=== PATIENT | female | born 1950 | race Caucasian/White ===

== ENCOUNTER → 2018-06-21 07:10 | Outpatient (CLI) | payer OTHER, SELFPAY ==
[2018-06-21 08:29] LABS: Cholesterol 260 mg/dL (50-200); Glucose 106 mg/dL (70-100); HDL Cholesterol 65 mg/dL (40-60); LDL CHOLESTEROL 178 mg/dL (<100); Triglyceride 90 mg/dL (30-150)
[2018-06-22 11:06] LABS: Hepatitis C Ab w Rflx HCV PCR Negative (NEGAT)
== END ==
PROVIDERS: PCP Nurse Practitioner Family; Visit Provider Obstetrics & Gynecology Gynecology
DX: Z00.00 Encounter for general adult medical examination without abnormal findings (principal); Z13.220 Encounter for screening for lipoid disorders; Z13.1 Encounter for screening for diabetes mellitus; Z11.59 Encounter for screening for other viral diseases
CPT/HCPCS: 36415; 80061; 82947; 83721; 86803

== ENCOUNTER 2018-07-20 00:42 | Outpatient (CLI) | payer OTHER, SELFPAY ==
--- NOTE | 2018-07-20 08:00 | DI.MAMMO_ITS ---
SYMPTOMS/DIAGNOSIS: SCREENING, Z12.31 MAMMOGRAMS: Mammograms were interpreted according to the usual protocol including computer analysis with CAD system, tomosynthesis and C view imaging. The breast tissue is of moderate radiodensity. There is no dominant mass. There are no suspicious calcifications and there has been no significant interval change when compared with prior images. SUMMARY: No evidence of malignancy, category 1. Yearly screening mammography is recommended. Breast density category B. SA ASSESSMENT OF FINDINGS: Negative. Category 1. Patient will receive a letter notifying them of these results. BI-RADS category B. There are scattered areas of fibroglandular density.
== END 2018-07-20 01:02 ==
PROVIDERS: PCP Nurse Practitioner Family; Visit Provider Obstetrics & Gynecology Gynecology
DX: Z12.31 Encounter for screening mammogram for malignant neoplasm of breast (principal)
CPT/HCPCS: 77063; 77067

== ENCOUNTER 2019-09-06 01:22 | Outpatient (CLI) | payer OTHER, SELFPAY ==
--- NOTE | 2019-09-06 07:35 | DI.MAMMO_ITS ---
EXAM: MG MAMMO SCREENING MAMMO SCREENING CLINICAL HISTORY: screening,Z12.39 TECHNIQUE: Mammograms were interpreted according to the usual protocol including computer analysis w [employer] CAD system, tomosynthesis and C-view imaging. COMPARISON: 2009 through 2017 FINDINGS: The breasts are composed of scattered fibroglandular densities, Breast Density category B. No suspicious masses or suspicious microcalcifications are seen. No skin thickening or abnormal axillary lymph nodes are seen. There has been no significant change from prior exams. IMPRESSION: BIRADS Category 1, negative mammogram. Yearly screening mammography is recommended. BI-RADS Cat 1 - Negative. Breast Density - Category B - Scattered areas of fibroglandular density.
== END 2019-09-06 01:42 ==
PROVIDERS: PCP Nurse Practitioner Family; Visit Provider Obstetrics & Gynecology Gynecology
DX: Z12.31 Encounter for screening mammogram for malignant neoplasm of breast (principal)
CPT/HCPCS: 77063; 77067

== ENCOUNTER 2020-04-30 10:38 | Outpatient (CLI) | payer OTHER, SELFPAY ==
--- NOTE | 2020-04-30 09:20 | DI.RAD_ITS ---
EXAM: XR LUMBAR SPINE COMPLETE CLINICAL HISTORY: R leg pain. TECHNIQUE: 2D digital imaging was performed. COMPARISON: No exams were available for comparison FINDINGS: There are 5 lumbar type vertebral bodies. There is normal alignment. No evidence of spondylolysis o r spondylolisthesis is seen. There is disc space narrowing at L5-S1. Endplate osteophytes are prese nt throughout the lumbar spine. There are degenerative changes of the facets throughout the lumbar s pine. The findings are most marked at L4-5 and L5-S1. No acute fractures or subluxations are presen t. IMPRESSION: Moderate degenerative changes of the lumbar spine. DATA REPOSITORY: RADIATION DOSE DELIVERED:
== END 2020-04-30 10:58 ==
PROVIDERS: PCP Nurse Practitioner Family; Referring Provider Nurse Practitioner Family; Visit Provider Physician Assistant
DX: M79.604 Pain in right leg (principal); M51.37 Other intervertebral disc degeneration, lumbosacral region; M47.817 Spondylosis without myelopathy or radiculopathy, lumbosacral region
CPT/HCPCS: 72110

== ENCOUNTER 2020-05-07 00:41 | Outpatient (CLI) | payer OTHER, SELFPAY ==
--- NOTE | 2020-05-07 07:00 | DI.MRI_ITS ---
EXAM: MR LUMBAR SPINE WO CLINICAL HISTORY: R LEG PAIN, SPINAL STENOSIS, M48.00. TECHNIQUE: Multiplanar multisequence MRI of the Lumbar spine was performed. COMPARISON: CR XR LUMBAR SPINE COMPLETE from 04/30/2020 FINDINGS: Bones: The last intervertebral disc space is designated the L5/S1 level for the numbering purpose of this examination. The vertebral body heights are well maintained. Alignment is satisfactory. There are degenerative signal changes in the endplates at L5-S1. The overall marrow signal is normal. A h emangioma is noted in the T12 vertebral body.. Cord: The conus tip ends at the L1 level. It is of normal size and signal intensity. T12-L1: No disc herniations or bulges are present. L1-2: Small endplate osteophytes and mild concentric disc bulging. No neural foraminal narrowing o r central canal stenosis. L2-3: Mild concentric disc bulging. Mild facet degenerative changes and ligamentous hypertrophy. No significant neural foraminal narrowing or central canal stenosis. L3-4: Minimal disc bulging. Facet degenerative changes and ligamentous hypertrophy cause moderate n arrowing of the central canal, mainly the transverse dimension. There is no significant neural eleazar inal narrowing. L4-5: Small endplate osteophytes. Mild concentric disc bulging. Tiny right paracentral disc protru andreina. Facet degenerative changes and ligamentous hypertrophy combine with the disc bulging to produc e mild central canal stenosis. There is a small facet joint synovial cyst at the superior aspect of the right facet joint. There is moderate neural foraminal encroachment. There is no significant lef t neural foraminal narrowing. L5-S1: There is marked loss of disc height. There are broad-based mild endplate osteophytes. There are mild facet degenerative changes. There is no significant central canal stenosis. There is mild left and moderate right neural foraminal narrowing. Soft tissues: The visualized SI joints and sacrum are well maintained. The paraspinal soft tissues ar e unremarkable. IMPRESSION: Multilevel degenerative disc changes and facet degenerative changes. There is moderate central canal stenosis at L3-4. There is a small right paracentral disc protrusion at L4-5 and mild central canal stenosis as well as right neural foraminal narrowing. DATA REPOSITORY:
== END 2020-05-07 01:01 ==
PROVIDERS: PCP Nurse Practitioner Family; Visit Provider Student in an Organized Health Care Education/Training Program
DX: M79.604 Pain in right leg (principal); M51.36 Other intervertebral disc degeneration, lumbar region; M51.26 Other intervertebral disc displacement, lumbar region; M48.061 Spinal stenosis, lumbar region without neurogenic claudication
CPT/HCPCS: 72148

== ENCOUNTER 2020-06-08 01:47 | Outpatient (CLI) | payer OTHER, SELFPAY ==
[2020-06-08 13:04] LABS: Anion Gap 10.8 mmol/L (3-11); BUN 23 mg/dL (7-18); CO2 26.2 mmol/L (21.0-32.0); CREATININE 0.95 mg/dL (0.55-1.02); Calcium 9.4 mg/dL (8.5-10.1); Chloride 100 mmol/L (98-107); Estimated GFR 57.99 (mL/min/1.73m2); Glucose 149 mg/dL (74-106); Potassium 4.8 mmol/L (3.5-5.1); Sodium 137 mmol/L (136-145)
== END 2020-06-08 02:07 ==
PROVIDERS: PCP Nurse Practitioner Family; Visit Provider Physician Assistant
DX: I10 Essential (primary) hypertension (principal)
CPT/HCPCS: 36415; 80048

== ENCOUNTER 2020-08-22 01:28 | Outpatient (CLI) | payer OTHER, SELFPAY ==
[2020-08-22 12:53] LABS: Hemoglobin A1C 5.6 % (<5.7)
== END 2020-08-22 01:48 ==
PROVIDERS: PCP Nurse Practitioner Family; Visit Provider Obstetrics & Gynecology Gynecology
DX: Z13.1 Encounter for screening for diabetes mellitus (principal)
CPT/HCPCS: 36415; 83036

== ENCOUNTER 2020-09-28 01:58 | Outpatient (CLI) | payer OTHER, SELFPAY ==
--- NOTE | 2020-09-28 13:30 | DI.MAMMO_ITS ---
EXAM: MG MAMMO SCREENING CLINICAL HISTORY: screening TECHNIQUE: Mammograms were interpreted according to the usual protocol including computer analysis w [employer] CAD system, tomosynthesis and C-view imaging. COMPARISON: FINDINGS: The breasts are of moderate density with fairly symmetrical distribution of fibroglandular tissue. N o dominant mass or clumped microcalcification is identified in either breast. The current examinatio n is compared with previous examinations including September 2019 and there has been no gross interval change in appearance in comparison with the prior studies. IMPRESSION: No specific evidence of malignancy at this time. Routine screening examinations are suggested at yea rly intervals due to the family history of breast carcinoma. BI-RADS Category 1 - Negative Breast Density - Category B - Scattered areas of fibroglandular density
== END 2020-09-28 02:18 ==
PROVIDERS: PCP Nurse Practitioner Family; Visit Provider Obstetrics & Gynecology Gynecology
DX: Z12.31 Encounter for screening mammogram for malignant neoplasm of breast (principal); Z80.3 Family history of malignant neoplasm of breast
CPT/HCPCS: 77063; 77067

== ENCOUNTER 2021-09-27 09:11 | Outpatient (REF) | payer OTHER, SELFPAY ==
[2021-09-27 14:50] LABS: Hemoglobin A1C 5.4 % (<5.7)
[2021-09-27 14:53] LABS: Calculated LDL 159 mg/dL (<100); Cholesterol 247 mg/dL (<200); HDL Cholesterol 67 mg/dL (40-60); Triglyceride 109 mg/dL (<150)
== END 2021-09-27 09:12 | disposition home or self-care (01) ==
LOC: NCHCN 09:11
PROVIDERS: PCP Nurse Practitioner Family; Visit Provider Nurse Practitioner Family
DX: E78.5 Hyperlipidemia, unspecified (principal); I10 Essential (primary) hypertension; R73.03 Prediabetes
CPT/HCPCS: 80061; 83036

== ENCOUNTER 2021-10-17 01:32 | Outpatient (CLI) | payer OTHER, SELFPAY ==
--- NOTE | 2021-10-17 12:40 | DI.MAMMO_ITS ---
Exam(s) MAMMO SCREENING EXAM: MAMMO SCREENING CLINICAL HISTORY: SCREENING, Z12.31, FAMILY HX OF BREAST CA, Z80.3. TECHNIQUE: Bilateral full field digital CC and MLO mammographic images were obtained with 3D tomosyn thesis and utilizing computer aided detection (CAD). COMPARISON: Prior mammograms dating back to 2011, the most recent being September 2020.. Family history. Her sister was diagnosed with breast cancer. FINDINGS: There has been no significant change in the appearance and distribution of the fibroglandular tissue. There are no new spiculated masses nor malignant appearing microcalcification groups. There is no significant architectural distortion nor skin thickening-retraction. IMPRESSION: No radiographic evidence of malignancy. BI-RADS Category 1 - Negative Breast Density - Category B - Scattered areas of fibroglandular density Breast density Category C or D implies that the patient has dense breast tissue. Dense breast tissue can make it harder to find cancer on a mammogram. Dense breast tissue is also associated with an incr eased risk of breast cancer. This information about the result of the mammogram report was provided to the patient to raise their awareness. Use this report when you speak with the patient about their risks for breast cancer, which includes their family history. At that time, you may recommend additional screening tests (Ultrasoun d or MRI) as these tests may add significant information. A negative radiographic report should not delay biopsy if a dominant or clinically suspicious mass is present. Up to ten percent of cancers are not identified on mammography. A negative report may reinforce clinical impression. Adenosis and dense breasts may obscure an underlying neoplasm. False positive reports average 6 to 10%. Patient will receive a letter notifying them of these results.
== END 2021-10-17 01:52 ==
PROVIDERS: PCP Nurse Practitioner Family; Visit Provider Nurse Practitioner Family
DX: Z12.31 Encounter for screening mammogram for malignant neoplasm of breast (principal)
CPT/HCPCS: 77063; 77067

== ENCOUNTER 2022-10-16 05:17 | Emergency (ER) | payer OTHER, SELFPAY ==
[2022-10-16 05:37] VITALS: BP 149/93; PULSE 91; RESP 18; TEMP 37.1; O2SAT 96
--- NOTE | 2022-10-16 05:39 | W.ED.GENAD ---
Discharge Plan Disposition Patient Disposition: Home Condition: Stable Discharge Details Clinical Impression: Tinnitus, Hearing loss Primary Care Provider: Melida Brown ED Provider: Odalis Justin Home Meds and New Rx's Prescriptions: New methylprednisolone [Medrol (Maximus)] 4 mg tablets,dose pack See Rx Instructions .ROUTE .COMPLEX Qty: 21 0RF Rx Instructions: orally per package directions Continued acetaminophen [Tylenol Extra Strength] 500 mg tablet 1,000 mg PO Q6H PRN Label Comments: takes one to two tabs as needed dorie/ cinnamon PO Label Comments: Pt reports using combination nightly, exact measurement unknown but pt reports approximately 1/4 tsp each of the spices Dorie/cinnamon PO DAILY Label Comments: 1/2 teaspoon each calcium carbonate-vitamin D3 600 mg-12.5 mcg (500 unit) capsule 1 cap PO DAILY ascorbate calcium (vitamin C) 500 mg tablet 1 gm PO DAILY Discharge Instructions Instructions: Hearing Loss (ED), Tinnitus (ED) Additional Instructions: Discontinue the Paxlovid. A prescription for the steroid medication Medrol Dosepak has been sent electronically to your pharmacy to take as directed until finished. Call your primary care doctor's office today to schedule a follow-up appointment for reevaluation within the next week and for follow-up on the results of the lab tests drawn today. Return immediately to the emergency department if you develop any worsening or new concerning symptoms such as headache, vomiting, fever or any other concerns. Discharge Data Discharge Date/Time-TO BE ENTERED AT DEPARTURE: 10/16/22 07:22 Discharge Physician: Odalis Justin Medical Decision Making 72yo F diagnosed with covid 6 days ago presents with a history of perioral paresthesias after 2 doses of paxlovid which has since resolved now presents with bilateral tinnitus and decreased hearing since yesterday. Pt states she was sent by her pcp for blood tests for her symptoms. Pt appears comfortable and nontoxic. Vitals within normal limits. She is afebrile and appears nontoxic. L TM obscured by cerumen. R TM appears to have fluid behind TM, no drainage. Normal oropharynx. Nurse attempted to flush L ear and no significant cerumen removal. D/w pharmacy international project manager and no recommendations or information regarding her symptoms of tinnitus and hearing loss after paxlovid - he thought having only 2 doses would be unusual to produce these effects. Recommends checking a liver panel as so far one of the only known side effect of Paxlovid is hepatotoxicity. Discussed with patient that I recommend treating with steroids to see if this alleviates any of her symptoms. Patient states she has not felt well while taking steroids and felt jittery. Discussed that we can treat with a Medrol Dosepak which is a lower starting and ending dose. Patient is agreeable with this plan. Discussed with pharmacy and there is also no known h/o polyethylene glycol coating in medrol dosepak. Patient also requested if she can have fasting outpatient labs that were ordered for tomorrow to be done now. Discussed with laboratory and they state that these tests are ordered for next week but they can be done at this time. Patient advised to use Debrox drops in her left ear. A prescription for Medrol Dosepak sent electronically to her pharmacy. She will no longer be taking the Paxlovid. Advised to follow up with the primary care doctor for re-evaluation. Usual and customary return precautions given prior to discharge. Medical Records Medical records reviewed: Yes I reviewed the patient's medical records. HPI General Mode of arrival: ambulatory. Date/Time Provider Initiated Documentation: 10/16/22 05:20. Limitations to Documentation: no limitations. Information obtained by: patient. HPI Narrative: Patient is a 72-year-old female who was diagnosed with COVID 5 days ago who presents with hearing loss and tinnitus after starting Paxlovid yesterday. Patient states she had a severe sore throat with COVID that has since resolved. She states she was started on Paxlovid per her PCP office of which she took 2 doses and noticed tingling and numbness around her mouth and lips and stopped taking the Paxlovid. She states she determined that the Paxlovid had a polyethylene glycol coating which she has had a reaction of localized swelling, numbness and tingling in the past. Patient states the symptoms completely resolved and last night she noted bilateral hearing loss and tinnitus which she states has been worsening. She states she called her PCP office and spoke to Dr. Weaver and was advised to come to the emergency department for further evaluation and possible blood work. Related Data Home Medications Medication Instructions Recorded Confirmed ascorbate calcium (vitamin C) 500 1 gm PO DAILY 05/17/20 04/05/22 mg tablet acetaminophen 500 mg tablet 1,000 mg PO Q6H PRN 08/17/20 04/05/22 (Tylenol Extra Strength) Dorie/cinnamon PO DAILY 10/07/22 10/07/22 calcium carbonate 600 mg-vitamin 1 cap PO DAILY 10/07/22 10/07/22 D3 12.5 mcg (500 unit) capsule dorie/ cinnamon PO 10/07/22 10/07/22 methylprednisolone 4 mg tablets in See Rx Instructions PO .COMPLEX 10/16/22 a dose pack (Medrol (Maximus)) #21 dose pk Previous Rx's Medication Instructions Recorded methylprednisolone 4 mg tablets in See Rx Instructions PO .COMPLEX 10/16/22 a dose pack (Medrol (Maximus)) #21 dose pk Allergies Allergy/AdvReac Type Severity Reaction Status Date / Time polyethylene glycol AdvReac Intermediate localized Verified 10/07/22 13:26 swelling. numbness/tingling General Stated Complaint: EarProblem ARLENE: 3 Review of Systems All systems reviewed & are unremarkable except as noted in HPI and below Constitutional Constitutional: Reports as per HPI, Denies chills and Denies fever(s) Eyes Eyes: Denies blurry vision ENT Ears, Nose, Mouth, and Throat: Denies dizziness, Reports hearing loss, Reports tinnitus, Denies sore throat and Denies throat swelling Cardiovascular Cardiovascular: Denies chest pain and Denies dyspnea Respiratory Respiratory: Denies cough and Denies dyspnea Gastrointestinal Gastrointestinal: Denies abdominal pain, Denies diarrhea and Denies vomiting Genitourinary Genitourinary: Denies hematuria and Denies dysuria Musculoskeletal Musculoskeletal: Denies back pain and Denies numbness Integumentary/Breasts Skin/Breast: Denies lesions and Denies rash Neurologic Neurologic: Denies dizziness, Denies localized weakness and Denies numbness Allergic/Immunologic Allergic/Immunologic: Denies throat swelling PFSH All Active Problems (Updated 10/16/22 @ 06:57 by Odalis Justin DO) Tinnitus (Acute) Hearing loss (Acute) Family hx of aortic aneurysm (Acute) Exposure to strep throat (Acute) Screening for diabetes mellitus (Acute) Right lumbar radiculopathy (Acute) R L4-5 Disc Herniation and Synovial Facet Cyst Gastrocnemius strain, left (Acute) Spinal stenosis (Acute) Encounter for screening for other viral diseases (Acute) Elevated systolic blood pressure reading without diagnosis of hypertension (Acute) Facial lesion (Acute) Encounter for colorectal cancer screening (Acute) Medical History (Updated 10/16/22 @ 06:57 by Odalis Justin DO) Actinic keratosis Elevated fasting glucose 2013 = 106. 2017 = 106 Palpitations (~12/2008) palpitations and syncope - Cardiology evaluation negative Surgical History Cervical Procedure 1993 cryo Ligation of fallopian tube (~1975) Family History Mother Rheumatoid arthritis severe Father Alzheimer's disease Sister Hyperlipidemia Grandmother Heart disease mat aunt Heart disease mat first cousin Personal history of malignant neoplasm Breast CA paternal uncle Alzheimer's disease undiagnosed dementia Brother Melanoma Social History (Updated 05/24/20 @ 08:01 by Adeline Nunez) Smoking/Tobacco Use Status: Never Smoking risk assessment performed?: Yes Alcohol Intake: never Drug use: Never Current gender identity: female Special kevon needs: No Do you feel safe at home: Yes Do you feel safe in your relationship?: Yes Female Reproductive History Menstrual Menopause type: natural Exam Const General: cooperative and no acute distress Orientation: alert, awake and oriented x3 HENMT Head: normal to inspection Ears: hearing grossly normal bilaterally, external ears normal and TM abnormal with fluid behind the TM on the right and obstructed by cerumen on the left General nose exam: external nose normal Mouth: oral mucosae normal Throat: posterior oropharynx normal, uvula midline and no peritonsillar masses Eyes General: appearance normal, both eyes and all related structures Neck Neck: normal visual inspection Resp Effort & Inspection: normal respiratory effort and able to speak in complete sentences Cardio Rate: regular rate Skin General skin exam: no rashes or lesions noted Neuro General: patient alert, patient awake and patient oriented x3 Motor: muscle tone normal throughout Extrem General: normal to inspection and full ROM Psych Appearance: grossly normal Affect: normal affect
[2022-10-16 12:54] LABS: ALT 19 U/L (14-59); AST 24 U/L (15-37); Albumin 3.8 g/dL (3.4-5.0); Alkaline Phosphatase 58 U/L (46-116); Bilirubin, Direct 0.1 mg/dL (0.0-0.2); Bilirubin, Total 0.3 mg/dL (0.2-1.0); Total Protein 7.1 g/dL (6.4-8.2)
== END 2022-10-16 07:22 | disposition home or self-care (01) ==
PROVIDERS: Emergency Provider Physician Assistant; PCP Nurse Practitioner Family
DX: H93.13 Tinnitus, bilateral (principal); H91.93 Unspecified hearing loss, bilateral; T37.5X5A Adverse effect of antiviral drugs, initial encounter; H61.22 Impacted cerumen, left ear; Z86.16 Personal history of COVID-19
CPT/HCPCS: 80076; 99283; 99284

== ENCOUNTER 2022-10-16 13:22 | Outpatient (CLI) | payer OTHER, SELFPAY ==
[2022-10-16 07:48] LABS: ALT 22 U/L (14-59); AST 20 U/L (15-37); Albumin 3.6 g/dL (3.4-5.0); Alkaline Phosphatase 60 U/L (46-116); BUN 11 mg/dL (7-18); Bilirubin, Total 0.3 mg/dL (0.2-1.0); CREATININE 0.9 mg/dL (0.55-1.02); Calcium 8.5 mg/dL (8.5-10.1); Calculated LDL 130 mg/dL (<100); Chloride 103 mmol/L (98-107); Cholesterol 208 mg/dL (<200); Glucose 112 mg/dL (74-106); HDL Cholesterol 59 mg/dL (40-60); Potassium 4.1 mmol/L (3.5-5.1); Sodium 140 mmol/L (136-145); Triglyceride 95 mg/dL (<150)
== END 2022-10-16 13:23 | disposition home or self-care (01) ==
LOC: LBO 13:22
PROVIDERS: PCP Nurse Practitioner Family; Visit Provider Obstetrics & Gynecology Gynecology
DX: Z13.1 Encounter for screening for diabetes mellitus (principal)
CPT/HCPCS: 36415; 80053; 80061

== ENCOUNTER 2022-11-25 02:09 | Outpatient (CLI) | payer OTHER, SELFPAY ==
--- NOTE | 2022-11-25 07:45 | DI.MAMMO_ITS ---
Exam(s) MAMMO SCREENING EXAM: MAMMO SCREENING CLINICAL HISTORY: screening. TECHNIQUE: Bilateral full field digital CC and MLO mammographic images were obtained with 3D tomosyn thesis and utilizing computer aided detection (CAD). COMPARISON: Prior mammograms were reviewed. FINDINGS: There has been no significant change in the appearance and distribution of the fibroglandular tissue. There are no new spiculated masses nor malignant appearing microcalcification groups. There is no significant architectural distortion nor skin thickening-retraction. IMPRESSION: No radiographic evidence of malignancy. BI-RADS Category 1 - Negative Breast Density - Category B - Scattered areas of fibroglandular density Breast density Category C or D implies that the patient has dense breast tissue. Dense breast tissue can make it harder to find cancer on a mammogram. Dense breast tissue is also associated with an incr eased risk of breast cancer. This information about the result of the mammogram report was provided to the patient to raise their awareness. Use this report when you speak with the patient about their risks for breast cancer, which includes their family history. At that time, you may recommend additional screening tests (Ultrasoun d or MRI) as these tests may add significant information. A negative radiographic report should not delay biopsy if a dominant or clinically suspicious mass is present. Up to ten percent of cancers are not identified on mammography. A negative report may reinforce clinical impression. Adenosis and dense breasts may obscure an underlying neoplasm. False positive reports average 6 to 10%. Patient will receive a letter notifying them of these results.
== END 2022-11-25 02:29 ==
LOC: DI 02:09
PROVIDERS: PCP Nurse Practitioner Family; Visit Provider Obstetrics & Gynecology Gynecology
DX: Z12.31 Encounter for screening mammogram for malignant neoplasm of breast (principal)
CPT/HCPCS: 77063; 77067

== ENCOUNTER 2023-04-01 09:42 | Emergency (ER) | payer OTHER, SELFPAY ==
[2023-04-01] VITALS (20 sets, daily range): BP systolic 123–168; BP diastolic 53–77; PULSE 60–78; RESP 16; TEMP 36.7; O2SAT 97–99
--- NOTE | 2023-04-01 09:45 | RT.EKG_ITS ---
APPROVED REPORT Exam: Resting ECG Reason for Exam: dizziness Patient Location: E HR:70 bpm ECG Measurements Heart Rate 70 AXIS NE 155 P 37 QRSd 91 QRS -36 QT 410 T 30 QTc 441 Conclusion Sinus rhythm...normal P axis, V-rate 60- 99 Left ventricular hypertrophy...multiple voltage criteria sinus rhythm, left axis, normal intervals, non ischemic
--- NOTE | 2023-04-01 10:15 | DI.RAD_ITS ---
Exam(s) XR CHEST 2V PA LATERAL EXAM: XR CHEST 2V PA LATERAL CLINICAL HISTORY: presyncope TECHNIQUE: 2D digital imaging was performed. COMPARISON: No exams were available for comparison FINDINGS: HEART: Normal size. Aorta: Not dilated. PULMONARY VASCULATURE: Normal. LUNGS: Clear. PLEURAL SPACE: No pleural effusion or pneumothorax. BONE:Unremarkable for age. IMPRESSION: No acute abnormality. DATA REPOSITORY: RADIATION DOSE DELIVERED:
[2023-04-01] MEDS: Ondansetron 4 MG/2 ML VIAL IVP (10:40)
--- NOTE | 2023-04-01 10:43 | ED.GENADUL_ITS ---
Discharge Plan Disposition Patient Disposition: Home Discharge Details Chief Complaint: Dizzy/Sync Clinical Impression: Near syncope, Fecal incontinence Primary Care Provider: Melida Brown ED Provider: Taiwo Paniagua Home Meds and New Rx's Prescriptions: No Action acetaminophen [Tylenol Extra Strength] 500 mg tablet 1,000 mg PO Q6H PRN Patient Comments: takes one to two tabs as needed dorie/ cinnamon 1 tsp PO DAILY Patient Comments: Pt reports using combination nightly, exact measurement unknown but pt reports approximately 1/4 tsp each of the spices Dorie/cinnamon PO DAILY Patient Comments: 1/2 teaspoon each calcium carbonate-vitamin D3 600 mg-12.5 mcg (500 unit) capsule 1 cap PO DAILY Patient Comments: havent been taking recently ascorbate calcium (vitamin C) 500 mg tablet 1 gm PO DAILY methylprednisolone [Medrol (Maximus)] 4 mg tablets,dose pack See Rx Instructions .ROUTE .COMPLEX Qty: 21 0RF Patient Comments: patient states she was done with scrip in October of 2022 Rx Instructions: orally per package directions Discharge Instructions Instructions: Near Syncope (ED) Additional Instructions: Please follow-up with your primary care physician and discuss your lightheaded ness and fecal incontinence. If you have any issues obtaining referral for further imaging and/or colonoscopy or have any worsening symptoms please do not hesitate to return to the emergency department. Medical Decision Making 72-year-old female presents with near syncopal episodes over the past 2 days, lightheadedness and warm sensation coming over her body multiple times a day, both at rest and when standing. Mild nausea with resolved vomiting. No chest pain or shortness of breath no abdominal pain. Patient is neurologically intact. 5-5 strength upper and lower extremities, no ataxia. Cranial nerves intact normal speech. 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 Normal rectal tone examination. Consider dehydration versus electrolyte abnormality versus ACS versus less likely PE lower suspicion for CVA, no evidence of cauda equina on examination today. Will obtain screening labs EKG, fluids close reassessment of symptoms 14: 46 patient resting comfortably no acute distress. Feeling better after fluids and rest. Labs and imaging unremarkable. Encourage patient to follow-up for potential repeat colonoscopy given fecal incontinence. Patient does not want a referral at this time she will contact her primary care physician for follow-up. Given strict return precautions for any worsening symptoms. HPI General Date/Time Provider Initiated Documentation: 04/01/23 10:16 . HPI Narrative: 72-year-old female presents with intermittent sensation of lightheadedness and presyncope over the last 2 days, feels a warm sensation and as if she was going to pass out. No chest pain or shortness of breath. Did have some nausea and loose stool. Of note patient also endorses episodes of stool incontinence over the past several months specifically after getting adjustments of her lower back in the setting of spinal stenosis. MRI in the past has shown spinal cyst. Patient denies weakness in her legs saddle anesthesia or falls. No recent trauma. Related Data Home Medications Medication Instructions Recorded Confirmed ascorbate calcium (vitamin C) 500 1 gm PO DAILY 05/17/20 04/05/22 mg tablet acetaminophen 500 mg tablet 1,000 mg PO Q6H PRN 08/17/20 04/05/22 (Tylenol Extra Strength) Dorie/cinnamon PO DAILY 10/07/22 10/07/22 calcium carbonate 600 mg-vitamin 1 cap PO DAILY 10/07/22 10/07/22 D3 12.5 mcg (500 unit) capsule dorie/ cinnamon 1 tsp PO DAILY 10/07/22 04/01/23 methylprednisolone 4 mg tablets in See Rx Instructions PO .COMPLEX 10/16/22 a dose pack (Medrol (Maximus)) #21 dose pk Previous Rx's Medication Instructions Recorded methylprednisolone 4 mg tablets in See Rx Instructions PO .COMPLEX 10/16/22 a dose pack (Medrol (Maximus)) #21 dose pk Allergies Allergy/AdvReac Type Severity Reaction Status Date / Time polyethylene glycol AdvReac Intermediate localized Verified 10/07/22 13:26 swelling. 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 2017 = 106 Palpitations (~12/2008) palpitations and syncope - Cardiology evaluation negative Surgical History Cervical Procedure 1993 cryo Ligation of fallopian tube (~1975) Family History Mother Rheumatoid arthritis severe Father Alzheimer's disease Sister Hyperlipidemia Grandmother Heart disease mat aunt Heart disease mat first cousin Personal history of malignant neoplasm Breast CA paternal uncle Alzheimer's disease undiagnosed dementia Brother Melanoma Social History (Updated 05/24/20 @ 08:01 by Adeline Nunez) Smoking/Tobacco Use Status: Never Smoking risk assessment performed?: Yes Alcohol Intake: never Drug use: Never Current gender identity: female Special kevon needs: No Do you feel safe at home: Yes Do you feel safe in your relationship?: Yes Female Reproductive History Menstrual Menopause type: natural Exam Narrative Exam Narrative: Physical Examination General: alert, awake, cooperative, resting comfortably, no acute distress HEENT: normocephalic, atraumatic; PERRL, EOM intact, conjunctiva normal; no nasal discharge; moist mucous membranes, oral and pharyngeal mucosa normal, tolerating secretions Neck: supple, trachea midline; full ROM Chest: normal to inspection Respiratory: normal respiratory effort, speaking in full sentences, clear to auscultation, no wheezing, rales or rhonchi Cardiac: regular rate, regular rhythm, S1S2 intact, no murmurs rubs or gallops GI: abdomen soft, non-tender, non-distended; no palpable mass or hepatosplenomegaly; normal rectal tone Skin: no lesions, rashes or trauma appreciated Neuro: AAOx3, normal speech, moving all extremities; 5 out of 5 strength upper and lower extremities, normal rectal tone. No ataxia Psych: Appropriate mood and affect Course Vital Signs Vital signs: Vital Signs Temperature 36.7 C 04/01/23 09:45 Pulse 78 04/01/23 09:45 Respiratory Rate 16 04/01/23 09:45 Blood Pressure 168/77 H 04/01/23 09:45 Pulse Oximetry 97 04/01/23 09:45 Temperature 36.7 C 04/01/23 09:45 Temperature Source Skin 04/01/23 09:45 Pulse 78 04/01/23 09:45 Respiratory Rate 16 04/01/23 10:03 Respiratory Effort Normal 04/01/23 10:03 Respiratory Depth Normal 04/01/23 10:03 Respiratory Pattern Normal 04/01/23 10:03 Blood Pressure 168/77 H 04/01/23 09:45 Pulse Oximetry 97 04/01/23 09:45 Oxygen Delivery Method Room Air 04/01/23 09:45 Oxygen Flow Rate 0 04/01/23 09:45 Pain Level 0 04/01/23 09:45
[2023-04-01 10:56] LABS: Abs Immature Grans 0.04 10^3/uL (0.0-0.06); Absolute Basophil Count 0.04 10^3/uL (0.0-0.2); Absolute Eosinophil Count 0.01 10^3/uL (0.0-0.7); Absolute Lymphocyte Count 1.23 10^3/uL (1.2-3.4); Absolute Neutrophil Count 6.74 10^3/uL (1.2-6.7); Basophils % 0.5; Eosinophils % 0.1; HCT 38.3 % (36.0-46.0); HGB 12.7 g/dL (11.2-15.7); Immature Grans % 0.5; Lymphocytes % 14.7; MCH 30.1 pg (27.0-33.0); MCHC 33.2 % (32.0-36.0); MCV 91 fL (80-95); MPV 9.6 fL (8.0-11.0); Monocytes % 3.6; Neutrophils % 80.6; Platelet Count 284 10^3/uL (130-400); RBC 4.22 10^6/uL (3.93-5.22); RDW 12.1 % (11.7-14.6); RDW-SD 40.4 fL; WBC 8.36 10^3/uL (4.4-10.8)
[2023-04-01] MEDS: Normal Saline 1,000 ML 1000 ML IV (11:01)
[2023-04-01 11:10] LABS: PTT Activated 24.5 sec (21.5-31.9)
[2023-04-01 11:13] LABS: Bilirubin Negative (Negative); Blood Negative (Negative); Clarity Clear (Clear); Glucose Negative (Negative); Ketones Trace mg/dL (Negative); Leukocyte Esterase Trace (Negative); Nitrite Negative (Negative); Specific Gravity >= 1.030 (1.005-1.025); Urobilinogen 0.2 mg/dL (Up to 0.2)
[2023-04-01 11:27] LABS: ALT 25 U/L (14-59); AST 16 U/L (15-37); Alkaline Phosphatase 67 U/L (46-116); Anion Gap 7.3 mmol/L (3-11); BUN 21 mg/dL (7-18); Bilirubin, Total 0.6 mg/dL (0.2-1.0); CO2 29.7 mmol/L (21.0-32.0); CREATININE 1.1 mg/dL (0.55-1.02); Calcium 8.7 mg/dL (8.5-10.1); Chloride 103 mmol/L (98-107); Estimated GFR 53.06 (mL/min/1.73m2); Glucose 125 mg/dL (74-106); Potassium 4.2 mmol/L (3.5-5.1); Sodium 140 mmol/L (136-145); Total Protein 7.2 g/dL (6.4-8.2); Troponin I < 50 ng/L (<or=60)
[2023-04-01 11:32] LABS: TSH (W/Ref FT4) 0.98 uIU/mL (0.36-3.74)
[2023-04-01 11:36] LABS: Bacteria Few HPF (Negative); Epithelial Cells Few HPF (Negative); RBC 0-2 HPF (0-2)
[2023-04-01 11:37] LABS: C & S Indicated? Yes; Casts Negative LPF (Negative); Crystals Negative HPF (Negative); Mucus Trace (Negative)
[2023-04-01 13:56] LABS: Troponin I < 50 ng/L (<or=60)
== END 2023-04-01 17:23 | disposition home or self-care (01) ==
PROVIDERS: Emergency Provider Emergency Medicine; PCP Nurse Practitioner Family
DX: R55 Syncope and collapse (principal); R15.9 Full incontinence of feces
CPT/HCPCS: 36415; 80053; 93005; 96361; 96374; 99284; 71046; 81003; 81015; 84443; 84484; 85025; 85610; 85730; 87086; 93010; J2405

== ENCOUNTER 2023-04-09 20:20 | Outpatient (REF) | payer OTHER, SELFPAY ==
[2023-04-09 20:28] LABS: Anion Gap 4.5 mmol/L (3-11); BUN 14 mg/dL (7-18); CO2 29.5 mmol/L (21.0-32.0); CREATININE 0.9 mg/dL (0.55-1.02); Calcium 9.2 mg/dL (8.5-10.1); Chloride 103 mmol/L (98-107); Glucose 117 mg/dL (74-106); Potassium 4.1 mmol/L (3.5-5.1); Sodium 137 mmol/L (136-145)
== END 2023-04-09 20:21 | disposition home or self-care (01) ==
LOC: NCHCN 20:20
PROVIDERS: PCP Nurse Practitioner Family; Visit Provider Nurse Practitioner Family
DX: N28.9 Disorder of kidney and ureter, unspecified (principal); R25.1 Tremor, unspecified; R55 Syncope and collapse; I10 Essential (primary) hypertension; R73.03 Prediabetes; E78.5 Hyperlipidemia, unspecified
CPT/HCPCS: 80048

== ENCOUNTER 2023-04-29 00:52 | Outpatient (CLI) | payer OTHER, SELFPAY ==
--- NOTE | 2023-04-29 | DI.MRI_ITS ---
Exam(s) MR LUMBAR SPINE WO/W EXAM: MR LUMBAR SPINE WO/W CLINICAL HISTORY: FECAL INCONTINENCE,LUMBAR SPONDYLOLYSIS, M43.06,R15.9. TECHNIQUE: Multiplanar multisequence MRI of the Lumbar Spine was performed. CONTRAST MATERIAL: IV Contrast: 12 mL of Dotarem contrast administered. COMPARISON: MR MR LUMBAR SPINE WO from 05/07/2020 CR XR CHEST 2V PA LATERAL from 04/01/2023 FINDINGS: Bones: The last intervertebral disc space is designated the L5/S1 level for the numbering purpose of this examination. Since the prior MRI from 2019, there has been interval compression deformity of th e L1 vertebra superior endplate. This was present on a chest x-ray from 04/01/2023. Vertebral body h eights are otherwise well maintained. Alignment is satisfactory. There are degenerative endplate sig nal changes, most marked at L5-S1. There is again seen a hemangioma in the T12 vertebral body. Cord: The conus tip ends at the T12 level. It is of normal size and signal intensity. T12-L1: No disc herniations or bulges are present. No central spinal canal or neural foraminal stenos is. L1-2: No disc herniations or bulges are present. No central spinal canal or neural foraminal stenosis . L2-3: There is a mild diffuse disc bulge. No central spinal canal or neural foraminal stenosis. L3-4: No focal disc herniation. There are hypertrophic changes of the facets. There is mild narrowi ng of the central spinal canal which results. No significant neural foraminal stenosis. L4-5: There is a diffuse disc bulge. There are hypertrophic changes of the facets and ligamentum fla vum. The findings cause moderately severe central spinal canal stenosis. No significant neural fora ten stenosis is present. L5-S1: There is a very mild diffuse disc bulge. There are mild degenerative changes of the facets. No central spinal canal or neural foraminal stenosis. Soft tissues: The visualized SI joints and sacrum are well maintained. The paraspinal soft tissues ar e unremarkable. There is a multiloculated cystic lesion in the right upper quadrant which appears to be associated with the liver. It is incompletely imaged. There does not appear to be enhancement on the postcontrast images. There is no evidence of suspicious enhancement. IMPRESSION: 1. Multilevel degenerative changes throughout the lumbar spine as described above. 2. The findings are most marked at the L4-5 level where there is moderately severe central spinal can al stenosis present. 3. Multi cystic lesion in the right upper quadrant which appears to be so seated with the liver. A C T scan or MRI of the liver is recommended without and with contrast for further evaluation. 4. Compression fracture deformity of the superior endplate of L1. This does not appear to be acute b ut has occurred since the prior examination from 2019. This can be seen on the x-ray of the chest fr om 04/01/2023. Unexpected findings DATA REPOSITORY:
[2023-04-29] MEDS: Normal Saline Flush 10 ML SYR IVP (09:52)
[2023-04-29] MEDS: Gadoterate meglumine 20 ML SYRINGE 12 ML IVP (09:53)
== END 2023-04-29 01:12 ==
PROVIDERS: PCP Nurse Practitioner Family; Visit Provider Nurse Practitioner Family
DX: R15.9 Full incontinence of feces (principal); M43.06 Spondylolysis, lumbar region; S32.010A Wedge compression fracture of first lumbar vertebra, initial encounter for closed fracture; X58.XXXA Exposure to other specified factors, initial encounter
CPT/HCPCS: 72158

== ENCOUNTER 2023-05-22 00:52 | Outpatient (CLI) | payer OTHER, SELFPAY ==
--- NOTE | 2023-05-22 | DI.MRI_ITS ---
Exam(s) MR ABDOMEN WO/W EXAM: MR ABDOMEN WO/W CLINICAL HISTORY: LIVER LESION, K76.9 TECHNIQUE: Multiplanar multisequence MRI of the Abdomen was performed. CONTRAST MATERIAL: IV Contrast: 12 mL of Dotarem contrast administered. COMPARISON: MR MR LUMBAR SPINE WO from 05/07/2020 MR MR LUMBAR SPINE WO/W from 04/29/2023 FINDINGS: Lung bases: Clear. Liver: Innumerable cysts throughout the liver, largest in the inferior from medial right lobe which w ere visible on the recent lumbar spine MRI.. No suspicious lesions. Pancreas: Unremarkable. Gallbladder and Bile Ducts: Unremarkable. Adrenals: Unremarkable. Kidneys: Unremarkable. Spleen: Unremarkable. Aorta: Unremarkable. Soft Tissues: Unremarkable. Bone: Unremarkable. Lymph Nodes: Unremarkable. IMPRESSION: Innumerable liver cysts, the largest seen at the inferomedial right lobe. No suspicious lesions. DATA REPOSITORY:
[2023-05-22] MEDS: Gadoterate meglumine 20 ML VIAL IVP (08:50)
== END 2023-05-22 01:12 ==
LOC: DI 00:52
PROVIDERS: PCP Nurse Practitioner Family; Visit Provider Nurse Practitioner Family
DX: Q44.6 Cystic disease of liver (principal); K76.9 Liver disease, unspecified
CPT/HCPCS: 74183

== ENCOUNTER → 2023-06-15 13:35 | Outpatient (CLI) | payer OTHER, SELFPAY ==
--- NOTE | 2023-06-15 10:30 | DI.US_ITS ---
APPROVED REPORT EXAM: Comprehensive 2D, Doppler, and color-flow Echocardiogram Patient Location: Out-Patient [facility] Leverman: Donavan Lin RDCS Indications: NEAR SYNCOPE Other Information Study Quality: Adequate Conclusion Normal left ventricular wall thickness and chamber size. Ejection fraction is 60%. Wall motion is n ormal Normal right ventricular size and systolic function Both atria are normal in size Aortic valve is sclerotic and trileaflet with trace regurgitation. There is no aortic stenosis Normal mitral valve with mild regurgitation Mildly dilated ascending aorta 3.5 cm Wall motion Left Ventricle The left ventricle is normal size. The left ventricular systolic function is normal. The left ventric ular ejection fraction is within the normal range. There is normal left ventricular wall thickness. T here is normal LV segmental wall motion. There is no ventricular septal defect visualized. LVEF is 60 %. Right Ventricle The right ventricle is normal size. The right ventricular systolic function is normal. Atria The left atrium size is normal. The right atrium size is normal. The interatrial septum is intact wit h no evidence for an atrial septal defect. Aortic Valve The Aortic valve is sclerotic. There is no aortic valvular stenosis. Trace aortic regurgitation. Mitral Valve The mitral valve is normal in structure. No evidence of mitral valve stenosis. Mild mitral regurgitat ion. Tricuspid Valve The tricuspid valve is normal in structure. There is no tricuspid valve stenosis. Trace tricuspid reg urgitation. Unable to assess PA pressure. Pulmonic Valve The pulmonary valve is normal in structure. There is no pulmonic valvular stenosis. There is no pulmo ruba valvular regurgitation. Great Vessels The aortic root is normal in size. The ascending aorta is mildly dilated. Aortic arch is normal in ca liber. IVC is normal in size and collapses >50% with inspiration. Pericardium There is no pericardial effusion. 2D Dimensions IVSD d PLAX 0.78 cm F: 0.6-1.0 LV Vol A2C d MOD 53.5 mL LVPW d PLAX 0.77 cm F: 0.6 - 1.0 LV Vol A4C d MOD 110.0 mL LVID d PLAX 5.24 cm F: 3.8 - 5.2 LV EF A4C MOD 54.2 % LVDs 3.55 cm F: 2.2 - 3.5 LV EF A2C MOD 56.6 % Ao Root d 2.62 cm F: 2.7 - 3.3 LV EF Biplane MOD 52.8 % Ao Asc Diam d 3.50 cm F: 2.3 - 3.1 LV EF Teichholz 59.8 % LVEF (Villatoro's) 52.83 % F: 54 - 74 LV Volume 82.06 mL F: 46 - 106 LV Volume Index 50.03 mL/m2 F: 29 - 61 LV Vol Biplane MOD 82.1 mL FS 32.05 % LV Diastology E/A Ratio 0.6 MV E Vmax 0.81 (0.4-1.3 m/s) MV A Vmax 1.25 (0.4-1.3 m/s) Aortic Valve LVOT Vmax 1.38 m/s LVOT Peak Grad 7.6 mmHg LVOT Mean Grad 4.0 mmHg LVOT Diam s 2.15 cm AoV Peak Grad 8.6 mmHg LVOT SV 117.43 mL AoV Mean Grad 4.3 mmHg AoV Area VTI 3.41 cm2 Mitral Valve MV DT 223 (160-240 msec) Pulmonary Valve PV Mean Grad 4.8 mmHg RVOT Peak Gr. 2.60 mmHg RVOT Mean Gr. 1.30 mmHg RVOT VTI 0.171 m RVOT Vmax 0.81 m/s
== END ==
PROVIDERS: PCP Nurse Practitioner Family; Visit Provider Nurse Practitioner Family
DX: R55 Syncope and collapse (principal)
CPT/HCPCS: 93306

== ENCOUNTER 2023-10-13 08:38 | Outpatient (REF) | payer OTHER, SELFPAY ==
[2023-10-13 16:38] LABS: COMMENT (LAB VIEW ONLY) 276.85 mg/dL; Microalb ug/mg Crea 8.7 ug/mg Cr
== END 2023-10-13 08:39 | disposition home or self-care (01) ==
LOC: NCHCN 08:38
PROVIDERS: PCP Nurse Practitioner Family; Visit Provider Nurse Practitioner Family
DX: I10 Essential (primary) hypertension (principal); E78.2 Mixed hyperlipidemia
CPT/HCPCS: 82043; 82570

== ENCOUNTER → 2023-11-26 02:08 | Outpatient (CLI) | payer OTHER, SELFPAY ==
--- NOTE | 2023-11-26 | DI.MAMMO_ITS ---
Exam(s) MAMMO SCREENING EXAM: MAMMO SCREENING CLINICAL HISTORY: SCREENING MAMMO FOR BREAST CANCER Z12.31 TECHNIQUE: Bilateral full field digital CC and MLO mammographic images were obtained with 3D tomosyn thesis and utilizing computer aided detection (CAD). COMPARISON: Available for comparison. FINDINGS: Masses/Architectural Distortion: None seen. Microcalcifications: No suspicious pleomorphic-type are seen. Skin Thickening/Nipple Retraction: None. IMPRESSION: 1. No significant interval change with no specific features of malignancy noted. 2. Unless there is more urgent need, screening mammography is recommended, as per [place] guidelines. BI-RADS Category 1 - Negative Breast Density - Category B - Scattered areas of fibroglandular density Breast density category C or D implies that the patient has dense breast tissue. Dense breast tissue is very common and is not abnormal but dense breast tissue can make it harder to find cancer on a ma mmogram. Also, dense breast tissue may increase their breast cancer risk. This information about the result of the mammogram report was provided to the patient to raise their awareness. Use this report when you speak with the patient about their risks for breast cancer, which includes their family hist ory. At that time, you may recommend for more screening tests (Ultrasound or MRI) as they might be us eful based on their risk. A negative radiographic report should not delay biopsy if a dominant or clinically suspicious mass is present. Up to ten percent of cancers are not identified on mammography. A negative report may reinforce clinical impression. Adenosis and dense breasts may obscure an underlying neoplasm. False positive reports average 6 to 10%. Patient will receive a letter notifying them of these results.
== END ==
PROVIDERS: PCP Nurse Practitioner Family; Visit Provider Nurse Practitioner Family
DX: Z12.31 Encounter for screening mammogram for malignant neoplasm of breast (principal)
CPT/HCPCS: 77063; 77067

== ENCOUNTER 2024-06-15 01:19 | Outpatient (CLI) | payer OTHER, SELFPAY ==
--- NOTE | 2024-06-15 07:30 | DI.US_ITS ---
APPROVED REPORT EXAM: Comprehensive 2D, Doppler, and color-flow Echocardiogram Patient Location: Out-Patient [facility] Alarm Operator: Julianne Camarena RDCS (AE) Indications: Thoracic aortic ectasia Other Information Study Quality: Adequate Conclusion Normal left ventricular wall thickness and chamber size. Ejection fraction is 60%. Wall motion is n ormal Normal right ventricular size and function Both atria are normal in size Aortic valve is mildly sclerotic and trileaflet with mild regurgitation Normal mitral valve with mild eccentric regurgitation Minimally dilated ascending aorta measuring 3.4 cm Estimated right ventricular systolic pressure is 28 mmHg Wall motion Left Ventricle The left ventricle is normal size. The left ventricular systolic function is normal. The left ventric ular ejection fraction is within the normal range. There is normal left ventricular wall thickness. T here is normal LV segmental wall motion. There is no ventricular septal defect visualized. LVEF is 60 %. Right Ventricle The right ventricle is normal size. The right ventricular systolic function is normal. Atria The left atrium size is normal. The right atrium size is normal. The interatrial septum is intact wit h no evidence for an atrial septal defect. Aortic Valve The Aortic valve is mildly sclerotic. Aortic valve is trileaflet. There is no aortic valvular stenosi s. Mild aortic regurgitation. Mitral Valve The mitral valve is normal in structure. No evidence of mitral valve stenosis. Mild eccentric mitral regurgitation Mild to moderate mitral regurgitation. Mitral regurgitation jet is eccentrically direc don. Tricuspid Valve The tricuspid valve is normal in structure. There is no tricuspid valve stenosis. Trace tricuspid reg urgitation. The RVSP is 28.7 mmHg. Pulmonic Valve The pulmonary valve is normal in structure. There is no pulmonic valvular stenosis. There is no pulmo ruba valvular regurgitation. Great Vessels The aortic root is normal in size. The ascending aorta is borderline Dilated. Aortic arch is normal i n caliber. IVC is normal in size and collapses >50% with inspiration. Pericardium There is no pericardial effusion. 2D Dimensions IVSD d PLAX 0.80 cm F: 0.6-1.0 Ao Root d 2.45 cm F: 2.7 - 3.3 LVPW d PLAX 0.80 cm F: 0.6 - 1.0 Ao Asc Diam d 3.40 cm F: 2.3 - 3.1 LVID d PLAX 4.74 cm F: 3.8 - 5.2 LVDs 3.16 cm F: 2.2 - 3.5 LV EF Teichholz 61.9 % FS 33.32 % LV EDV (Teich) 104.5 mL LV ESV (Teich) 39.8 mL M-Mode TAPSE 2.58 cm (M/F) >1.7 Auto EF LV EDV A4C 102.6 mL LV EDV A2C 104.0 mL LV EDV BP 104.1 mL LV ESV A4C 43.0 mL LV ESV A2C 43.6 mL LV ESV BP 44.1 mL LVEF(%) A4C 58.1 % LVEF(%) A2C 58.0 % LVEF(%) BP 57.7 % LV SV A4C 59.5 ml LV SV A2C 60.3 ml LV SV BP 60.1 ml LV CO A4C 3.7 L/min LV CO A2C 3.5 L/min LV CO BP 3.6 L/min HR A4C 62.18 BPM HR A2C 57.60 BPM LV EDV Index (BP) LA Volume LA Length A4C 5.9 cm LA Length A2C 4.9 cm LA Area A4C s 17.70 cm2 LA Area A2C s 16.37 cm2 LA Vol A4C A-L 45.30 mL LA Vol A2C A-L 46.88 mL LA Vol Biplane A-L 50.7 mL LA Vol/BSA A4C A-L LA Vol/BSA A2C A-L LA Vol/BSA BP A-L 31.7 mL/m2 LA Vol A4C MOD 41.5 mL LA Vol A2C MOD 43.9 mL LA Vol BP MOD 46.8 mL RA Volume RA Area A4C 14.2 cm2 RA ESV A4C (A-L) 34.4mL RA Vol/BSA A4C A-L RA Length A4C 5.0 cm RA ESV A4C (MOD) 31.9mL LV Diastology MV E' medial 0.061 (>0.07 m/s) MV E Vmax 0.79 (0.4-1.3 m/s) MV E/E' MED 12.90 (<14) MV A Vmax 1.05 (0.4-1.3 m/s) MV E' lateral 0.067 (>0.1 m/s) E/A Ratio 0.8 MV E/E' LAT 11.86 (<14) MV E' Average 0.064 m/s MV E/E'(average) 12.36 Aortic Valve AoV Vmax 1.82 m/s LVOT Vmax 1.27 m/s AoV Peak Grad 56.6 mmHg LVOT Peak Grad 6.4 mmHg AoV Area (Vmax) 2.22 cm2 LVOT VTI 0.303 m AoV VTI 0.460 m LVOT Mean Grad 3.9 mmHg AoV Mean Mani. 1.31 m/s LVOT SV 96.63 mL AoV Mean Grad 7.9 mmHg LVOT Diam s 2.00 cm AoV Area (VTI) 2.10 cm2 AV Regurg Peak Gr. 13.27 mmHg Velocity Ratio 0.70 AR Decel [place] 2.3m/sec2 AR DT 2209 msec AR PHT 641 msec AR Vmax 5.00 m/s Mitral Valve MV DT 248 (160-240 msec) MV Vmax TIPS 1.15 m/s MV Mean Grad 1.8 (<2mmHg) MV VTI 0.363 m Pulmonary Valve PV Vmax 1.37 (0.5-1.5 m/s) RVOT Vmax 0.55 m/s PV Peak Grad 7.5 mmHg RVOT Peak Gr. 1.2 mmHg PV Mean Mani 1.04 m/s RVOT VTI 0.109 m PV Mean Grad 4.6 mmHg RVOT Mean Gr. 0.8 mmHg Tricuspid Valve RA Pressure 3.00 mmHg TR Vmax 2.53 m/s TV S' 0.13 m/s TR Peak Grad 25.6 mmHg RVSP (TR) 28.7 mmHg
== END 2024-06-15 01:39 ==
LOC: DI 01:19
PROVIDERS: PCP Nurse Practitioner Family; Visit Provider Nurse Practitioner Family
DX: I77.810 Thoracic aortic ectasia (principal)
CPT/HCPCS: 93306

== ENCOUNTER 2024-07-13 16:30 | Outpatient (REF) | payer OTHER, SELFPAY ==
--- NOTE | 2024-07-13 16:15 | ENDOMET_PTH ---
PATIENT: Agnes Mejia LOC: [facility] U#:[id number] AGE/SX: 74/F ROOM: RE07/13/[address]: Caty Stewart : 1950 BED: DIS: 07/13/2024 SPEC #: [id number] RECD: 07/13/24 17:47 STATUS: [place] REJina #: [id number] SADIQ: 07/13/24 16:[address]: Caty Stewart DEPT: Surgical Specimen RECD BY: Rehana Chamberlain ENTERED: 07/13/24 17:47 SP TYPE: Endomet OTHR DR: Melida Brown Tissues: 1 - ENDOMETRIUM BX/DARLENE Procedures: GROSS AND MICRO LEVEL 4 Comments: [id number]
== END 2024-07-13 16:31 | disposition home or self-care (01) ==
LOC: LBN 16:30
PROVIDERS: PCP Nurse Practitioner Family; Visit Provider Obstetrics & Gynecology Gynecology
DX: N85.9 Noninflammatory disorder of uterus, unspecified (principal); N95.0 Postmenopausal bleeding
CPT/HCPCS: 88305

== ENCOUNTER 2024-10-17 21:53 | Outpatient (REF) | payer OTHER, SELFPAY ==
[2024-10-17 22:53] LABS: Bilirubin Negative (Negative); Blood Negative (Negative); Clarity Clear (Clear); Glucose Negative (Negative); Ketones Negative (Negative); Leukocyte Esterase Negative (Negative); Nitrite Negative (Negative); Urobilinogen 0.2 mg/dL (Up to 0.2)
[2024-10-17 23:03] LABS: COMMENT (LAB VIEW ONLY) 18.42 mg/dL; Microalb ug/mg Crea 17.4 ug/mg Cr
== END 2024-10-17 21:54 | disposition home or self-care (01) ==
LOC: NCHCN 21:53
PROVIDERS: PCP Nurse Practitioner Family; Visit Provider Nurse Practitioner Family
DX: I10 Essential (primary) hypertension (principal); E78.2 Mixed hyperlipidemia
CPT/HCPCS: 81003; 82043; 82570

== ENCOUNTER 2024-10-25 02:55 | Outpatient (CLI) | payer OTHER, SELFPAY ==
[2024-10-25] MEDS: Barium Sulfate 2% W/V-Creamy Vanilla Smoothie 450 ML BTL PO (07:04)
[2024-10-25 07:39] LABS: ALT 17 U/L (14-59); AST 16 U/L (15-37); Alkaline Phosphatase 68 U/L (46-116); BUN 17 mg/dL (7-18); Bilirubin, Total 0.52 mg/dL (0.2-1.0); Calcium 8.9 mg/dL (8.5-10.1); Calculated LDL 149 mg/dL (<100); Chloride 107 mmol/L (98-107); Cholesterol 237 mg/dL (<200); Estimated GFR 58.75 (mL/min/1.73m2); Glucose 120 mg/dL (74-106); HDL Cholesterol 71 mg/dL (40-60); Hemoglobin A1C 5.4 % (<5.7); Potassium 3.9 mmol/L (3.5-5.1); Sodium 145 mmol/L (136-145); Total Protein 7.1 g/dL (6.4-8.2); Triglyceride 88 mg/dL (<150)
[2024-10-25] MEDS: Normal Saline - Diluent 50 ML VIAL IJ (08:20)
[2024-10-25] MEDS: Omnipaque 350 MG/ML 500 ML BTL-Imaging package 75 ML IJ (08:21)
--- NOTE | 2024-10-25 08:23 | DI.CT_ITS ---
Exam(s) CT ABDOMEN W EXAM: CT ABDOMEN W CLINICAL HISTORY: Liver disease, K76.9 TECHNIQUE: Imaging Protocol: Axial computed tomography images with coronal and sagittal reformatted images were created and reviewed CONTRAST MATERIAL: Intravenous: Omnipaque 350 Contrast volume:75 contrast route:IV - Oral: yes COMPARISON: MR MR ABDOMEN WO/W from 05/22/[address] ABDOMEN PELVIS WO from 11/12/2023 FINDINGS: ABDOMEN: Lung Bases: Normal where visualized. Liver: Normal density. Normal size. Innumerable cysts, stable from prior exam. No suspicious mass. Gallbladder and biliary tract: No radiodense calculus or dilation. Pancreas: Normal density, no abnormal calcifications or inflammatory process. Spleen: Normal. Kidneys: Normal size, contour and axis. No radiodense stones or obstructive uropathy. No masses seen. Adrenal glands: No masses seen. Abdominal Aorta: Abdominal portion non-dilated. Lymph nodes: Within normal limits. Bowel: No wall thickening or evidence of obstruction. Stomach unremarkable as visualized. Bones: Stable mild L1 compression fracture. IMPRESSION: Stable multiple liver cysts. No suspicious masses or other acute abnormality. RADIATION DOSE DELIVERED: 169.34mGy.cm Total DLP DATA REPOSITORY: All CT scans at this facility are submitted to the National Radiology Data Registry (NRDR) Dose Index Registry (DIR) with the [employer] (ACR). RADIATION OPTIMIZATION: All CT scans at this facility use at least one of these dose optimization te chniques: automated exposure control; mA and/or kV adjustment per patient size (includes targeted exa ms where dose is matched to clinical indication); or iterative reconstruction.
== END 2024-10-25 03:15 ==
LOC: DI 02:55
PROVIDERS: PCP Nurse Practitioner Family; Visit Provider Nurse Practitioner Family
DX: K76.9 Liver disease, unspecified (principal)
CPT/HCPCS: 80053; 80061; 74160; 83036

== ENCOUNTER 2024-11-30 02:44 | Outpatient (CLI) | payer OTHER, SELFPAY ==
--- NOTE | 2024-11-30 06:45 | DI.MAMMO_ITS ---
Exam(s) MAMMO SCREENING EXAM: MAMMO SCREENING CLINICAL HISTORY: screening,z12.39 TECHNIQUE: Bilateral full field digital CC and MLO mammographic images were obtained with 3D tomosyn thesis and utilizing computer aided detection (CAD). COMPARISON: Available for comparison. FINDINGS: Masses/Architectural Distortion: None seen. Microcalcifications: No suspicious pleomorphic-type are seen. Skin Thickening/Nipple Retraction: None. IMPRESSION: 1. No significant interval change with no specific features of malignancy noted. 2. Unless there is more urgent need, screening mammography is recommended, as per [employer] guidelines. BI-RADS Category 1 - Negative Breast Density - Category B - Scattered areas of fibroglandular density Breast density category C or D implies that the patient has dense breast tissue. Dense breast tissue is very common and is not abnormal but dense breast tissue can make it harder to find cancer on a ma mmogram. Also, dense breast tissue may increase their breast cancer risk. This information about the result of the mammogram report was provided to the patient to raise their awareness. Use this report when you speak with the patient about their risks for breast cancer, which includes their family hist ory. At that time, you may recommend for more screening tests (Ultrasound or MRI) as they might be us eful based on their risk. A negative radiographic report should not delay biopsy if a dominant or clinically suspicious mass is present. Up to ten percent of cancers are not identified on mammography. A negative report may reinforce clinical impression. Adenosis and dense breasts may obscure an underlying neoplasm. False positive reports average 6 to 10%. Patient will receive a letter notifying them of these results.
== END 2024-11-30 03:04 ==
LOC: DI 02:44
PROVIDERS: PCP Nurse Practitioner Family; Visit Provider Obstetrics & Gynecology Gynecology
DX: Z12.31 Encounter for screening mammogram for malignant neoplasm of breast (principal); R92.323 Mammographic fibroglandular density, bilateral breasts
CPT/HCPCS: 77063; 77067

== ENCOUNTER 2025-04-29 12:18 | Emergency (ER) | payer OTHER, SELFPAY ==
[2025-04-29 12:30] VITALS: BP 196/94; PULSE 86; RESP 16; TEMP 36.7; O2SAT 94
[2025-04-29 12:37] VITALS: BP 196/94; PULSE 86; RESP 16; TEMP 36.7; O2SAT 94
--- NOTE | 2025-04-29 12:53 | W.ED.GENAD ---
Discharge Plan Disposition Patient Disposition: Home Condition: Stable Discharge Details Clinical Impression: Dental infection Primary Care Provider: Melida Brown ED Provider: Nakia Ferraro Home Meds and New Rx's Prescriptions: New amoxicillin-pot clavulanate 875-125 mg tablet 1 tab PO BID 6 Days Qty: 12 0RF No Action acetaminophen [Tylenol Extra Strength] 500 mg tablet 500 mg PO Q6H PRN Patient Comments: takes one to two tabs as needed Wendy/cinnamon 0.5 tsp PO DAILY Patient Comments: 1/2 teaspoon each ascorbate calcium (vitamin C) 500 mg tablet 1 gm PO DAILY magnesium glycinate 118 mg magnesium capsule 360 mg PO DAILY Discharge Instructions Instructions: Tooth Abscess (DC) Additional Instructions: You were seen in the emergency department today for evaluation of dental pain and infection as well as left sinus fullness and pain. In our department you do full physical examination performed, and we discussed changing your antibiotic to something a little stronger to protect your sinuses and prevent progression of your dental infection. You will take Augmentin, 2 times per day for 1 week, but need to be reevaluated by your dentist as soon as possible to ensure that no changes need to be made to this regimen. If you develop a fever, inability to eat or drink, or changes in vision you need to return to the emergency department for reevaluation. Please follow-up with your primary care provider in the next few days to discuss this visit and any symptoms that change, worsen, or persist. Thank you for allowing us to be part of your care. HPI General Mode of arrival: ambulatory. Date/Time Provider Initiated Documentation: 04/29/25 12:26. Limitations to Documentation: no limitations. Information obtained by: patient and old records reviewed. HPI Narrative: This is a 75-year-old female patient with a past medical history significant for hyperlipidemia, spinal stenosis, and a recent pain in the right upper molar, presenting for evaluation of dental infection. The patient reports that her pain started several days ago, and she began taking penicillin that she had leftover from a prior dental concern. She reports that her dental pain has improved significantly but now she feels fullness and pressure over her left sinus, and was concerned that the infection was moving upward. She is not experiencing any vision changes, diplopia, or difficulty with eye movements. She has not had fevers or chills and has been able to tolerate oral intake. She has a dentist that she can contact on Thursday to schedule a follow-up appointment. Related Data Home Medications ?Medication ?Instructions ?Recorded ?Confirmed ascorbate calcium (vitamin C) 500 1 gm PO DAILY 05/17/20 04/29/25 mg tablet Wendy/cinnamon 0.5 tsp PO DAILY 10/07/22 04/29/25 acetaminophen 500 mg tablet 500 mg PO Q6H PRN 06/16/24 04/29/25 (Tylenol Extra Strength) amoxicillin 875 mg-potassium 1 tab PO BID 6 days #12 tabs 04/29/25 clavulanate 125 mg tablet magnesium glycinate 360 mg PO DAILY 04/29/25 04/29/25 Previous Rx's ?Medication ?Instructions ?Recorded amoxicillin 875 mg-potassium 1 tab PO BID 6 days #12 tabs 04/29/25 clavulanate 125 mg tablet Allergies Allergy/AdvReac Type Severity Reaction Status Date / Time polyethylene glycol AdvReac Intermediate localized Verified 04/29/25 12:29 swelling. numbness/tingling General Stated Complaint: DentalOral ARLENE: 4 Exam Narrative Exam Narrative: Gen: Awake and alert, in no apparent distress HEENT: Non-icteric sclera, PERRL, EOMs are full and without nystagmus or limitation. I note no significant periorbital swelling or ecchymosis of the affected left side, she has no tenderness to palpation over her maxillary sinus, she has evidence of dental carry disease, no large periapical abscesses, though I do note some redness along the gumline of the left upper molars Neck: Supple Lungs: No apparent respiratory distress, normal respiratory effort. CV: Appears well perfused, strong distal pulses Abdomen: Non-distended MSK: Moves 4 extremities without apparent limitation in ROM Skin: Visualized skin without rashes, cyanosis. Neuro: Normal Gait, no obvious focal deficits or facial asymmetry. Speaks in full, clear sentences. Psych: Appropriate for situation. Course Vital Signs Vital signs: Vital Signs Temperature 36.7 C 04/29/25 12:30 Pulse 86 04/29/25 12:30 Respiratory Rate 16 04/29/25 12:30 Blood Pressure 196/94 H 04/29/25 12:30 Pulse Oximetry 94 04/29/25 12:30 Temperature 36.7 C 04/29/25 12:37 Temperature Source Oral 04/29/25 12:37 Pulse 86 04/29/25 12:37 Respiratory Rate 16 04/29/25 12:37 Blood Pressure 196/94 H 04/29/25 12:37 Blood Pressure Position Sitting 04/29/25 12:37 Pulse Oximetry 94 04/29/25 12:37 Oxygen Delivery Method Room Air 04/29/25 12:37 Oxygen Flow Rate 0 04/29/25 12:37 Pain Level 0 04/29/25 12:37 Medical Decision Making This is a 75-year-old female patient presenting for evaluation of dental pain and facial pain. My differential includes but is not limited to dental abscess and infection, dental carry disease, certainly considered spread of infection to the sinuses including sinusitis, I note no evidence of extraocular muscle involvement, have a low concern for cavernous sinus thrombosis, and do not see evidence for deep space neck infection on my physical examination. I am reassured by the patient's hemodynamic stability and lack of fever or tachycardia to suggest systemic infection such as sepsis or bacteremia. I did shared decision-making conversation with the patient regarding next steps in treatment and workup. At this time, I do not see an urgent indication to proceed with laboratory studies or advanced imaging, though these were certainly discussed with the patient and she feels comfortable with watchful waiting. I did recommend that we change her antibiotic coverage from penicillin to Augmentin, and provided her with a prescription for same. She will reach out to her dentist to schedule follow-up appointment, and understands to return to the emergency department with any fever or chills, change in her symptoms, vision changes, etc. At this time, the patient has had a full medical evaluation and is safe for discharge to home. They are hemodynamically stable, ambulatory, and tolerating PO. They are understanding of the follow-up plan and return precautions. They left our facility without incident. Nakia Ferraro MD [facility] All Active Problems (Updated 04/29/25 @ 12:53 by Nakia Ferraro MD) Dental infection (Acute) Post-menopausal bleeding (Acute) 07/14/24. EMBx. 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 2017 = 106 Actinic keratosis Palpitations (~12/2008) palpitations and syncope - Cardiology evaluation negative Surgical History Ligation of fallopian tube (~1975) Cervical Procedure 1993 cryo Family History Mother Rheumatoid arthritis severe Father Alzheimer's disease Sister Hyperlipidemia Grandmother Heart disease mat aunt Heart disease mat first cousin Personal history of malignant neoplasm Breast CA paternal uncle Alzheimer's disease undiagnosed dementia Brother Melanoma Social History (Updated 05/24/20 @ 08:01 by Adeline Nunez RN) Smoking/Tobacco Use Status: Never Smoking risk assessment performed?: Yes Alcohol Intake: never Drug use: Never Substance use type: does not use Current gender identity: female Special kevon needs: No Do you feel safe at home: Yes Do you feel safe in your relationship?: Yes Female Reproductive History Menstrual Menopause type: natural
[2025-04-29] MEDS: Amox. 875/Clav. 125, 2 TABS/BTL 1 TAB PO (13:01)
[2025-04-29 13:05] VITALS: BP 154/89; PULSE 70; RESP 14; O2SAT 98
== END 2025-04-29 13:07 | disposition home or self-care (01) ==
LOC: ER 12:55
PROVIDERS: Emergency Provider Emergency Medicine; PCP Nurse Practitioner Family
DX: K04.7 Periapical abscess without sinus (principal); E78.5 Hyperlipidemia, unspecified
CPT/HCPCS: 99283

== ENCOUNTER 2025-05-05 11:05 | Emergency (ER) | payer OTHER, SELFPAY ==
[2025-05-05 11:09] VITALS: BP 210/105; PULSE 99; RESP 16; TEMP 36.9; O2SAT 98
--- NOTE | 2025-05-05 11:45 | DI.CT_ITS ---
Exam(s) CT FACIAL W EXAM: CT FACIAL W CLINICAL HISTORY: dental abscess #16 pressure left side of face. TECHNIQUE: Imaging Protocol: Axial computed tomography images with coronal and sagittal reformatted images were created and reviewed. IV contrast: Omnipaque 350-100 mL intravenous COMPARISON: No exams were available for comparison FINDINGS: MAXILLOFACIAL CT SCAN WITH IV CONTRAST: Images of this study are severely degraded due to abundant dental amalgam streak artifact. ORBITS: No significant findings PARANASAL SINUSES: There is mucosal thickening in both maxillary sinuses and some mucosal thickening also evident in the oil air cells bilaterally. Sphenoid sinuses are clear. OSSEOUS: There is no evidence of facial fractures nor fluid the visualized paranasal sinuses. There is no evidence of orbital blowout fracture. Temporomandibular joints appear unremarkable bilaterally. There is an ORAL CAVITY/DENTAL: The right and left posterior molars are within the maxillary bone; have not descended into the oral cavity. There is cavity within the left posterior molar. AUDITORY: There is mild debris within both external auditory canals/probably cerumen. OTHER: Visualized nasopharynx, oral pharynx and hypopharynx appear unremarkable. IMPRESSION: Images of this study are severely degraded by streak artifact from abundant amalgam in the oral cavity. It is not possible to accurately assess for a dental abscess. There is, however, asymmetric soft tissue swelling of the left cheek and left oral cavity. In There is a large defect involving the left posterior upper molar and smaller defect involving the right posterior wall are consistent with oral cavities. The right and left posterior molars have not descended into the mouth. Other findings as above Preliminary report from [facility] was reviewed RADIATION DOSE DELIVERED: 2,087.46mGy.cm Total DLP DATA REPOSITORY: All CT scans at this facility are submitted to the National Radiology Data Registry (NRDR) Dose Index Registry (DIR) with the [employer] ([employer]). RADIATION OPTIMIZATION: All CT scans at this facility use at least one of these dose optimization techniques: automated exposure control; mA and/or kV adjustment per patient size (includes targeted exams where dose is matched to clinical indication); or iterative reconstruction.
--- NOTE | 2025-05-05 11:49 | DI.CT_ITS ---
Exam(s) CT HEAD WO/W EXAM: CT HEAD WO/W CLINICAL HISTORY: blurred vision, dental abscess, #16. TECHNIQUE: Imaging Protocol: Both noninfused and contrast infused CT scans of the brain were performed. IV Contrast Dose =100 mL Omnipaque 350 Axial computed tomography images with coronal and sagittal reformatted images were created and reviewed COMPARISON: CT CT FACIAL W from 05/05/2025 FINDINGS: There are no skull fractures nor fluid in the visualized paranasal sinuses. There is no evidence of intracranial hemorrhage, mass effect, or shift of midline structures. There are no extra-axial fluid collections. The ventricles are not enlarged or shifted and there is no blood within the ventricular system nor within the basal cisterns.There is some periventricular hypodensity around the atrium both lateral ventricles, slightly more so on the right side and consistent with chronic small vessel disease. There are no ring enhancing lesions in these regions nor elsewhere in the brain. There is also no abnormal meningeal enhancement. No evidence of vascular malformation nor obvious aneurysms. IMPRESSION: No significant acute intracranial findings. No significant enhancing intracranial findings. No evidence of intracranial abscess, given the history here. RADIATION DOSE DELIVERED: 2,087.46mGy.cm Total DLP DATA REPOSITORY: All CT scans at this facility are submitted to the National Radiology Data Registry (NRDR) Dose Index Registry (DIR) with the [employer] ([employer]). RADIATION OPTIMIZATION: All CT scans at this facility use at least one of these dose optimization techniques: automated exposure control; mA and/or kV adjustment per patient size (includes targeted exams where dose is matched to clinical indication); or iterative reconstruction.
[2025-05-05] MEDS: Normal Saline - Diluent 50 ML VIAL IJ (12:06)
[2025-05-05] MEDS: Omnipaque 350 MG/ML 100 ML BTL IJ (12:07)
[2025-05-05 12:10] LABS: Abs Immature Grans 0.02 10^3/uL (0.0-0.06); HCT 39.1 % (36.0-46.0); HGB 12.8 g/dL (11.2-15.7); Immature Grans % 0.3 %; MCH 30.2 pg (27.0-33.0); MCHC 32.7 % (32.0-36.0); MCV 92 fL (80-95); MPV 9.6 fL (8.0-11.0); Platelet Count 293 10^3/uL (130-400); RBC 4.24 10^6/uL (3.93-5.22); RDW 11.9 % (11.7-14.6); RDW-SD 39.9 fL; WBC 7.20 10^3/uL (4.4-10.8)
[2025-05-05 12:21] LABS: ALT 23 U/L (14-59); AST 17 U/L (15-37); Albumin 4.3 g/dL (3.4-5.0); Alkaline Phosphatase 73 U/L (46-116); Anion Gap 11.6 mmol/L (3-11); BUN 14 mg/dL (7-18); Bilirubin, Total 0.3 mg/dL (0.2-1.0); CO2 26.4 mmol/L (21.0-32.0); Calcium 9.1 mg/dL (8.5-10.1); Chloride 103 mmol/L (98-107); Estimated GFR 76.31 (mL/min/1.73m2); Glucose 125 mg/dL (74-106); Potassium 3.9 mmol/L (3.5-5.1); Sodium 141 mmol/L (136-145); Total Protein 7.4 g/dL (6.4-8.2)
--- NOTE | 2025-05-05 13:35 | DI.VRAD_ITS ---
PROCEDURE INFORMATION: Exam: CT Head Without And With Contrast Exam date and time: 05/05/2025 12:07 PM Age: 75 years old Clinical indication: Other: Dental abscess #16 pressure left side of face TECHNIQUE: Imaging protocol: Computed tomography of the head without and with contrast. Contrast material: OMNIPAQUE 350; Contrast volume: 100 ml; Contrast route: INTRAVENOUS (IV); COMPARISON: CT FACIAL W 02/06/2025 12:07 FINDINGS: Brain: Unremarkable. No intracranial hemorrhage. Unremarkable white matter. No mass effect. Cerebral ventricles: No ventriculomegaly. Paranasal sinuses: Minimal ethmoid sinus mucosal thickening. The remaining sinuses are well aerated. Mastoid air cells: Visualized mastoid air cells are well aerated. Bones: Unremarkable. No acute fracture. Soft tissues: Unremarkable. IMPRESSION: No acute intracranial abnormality. Dictated and Authenticated by: Collette Jackson MD. Orderin Hermila Kimball MD
--- NOTE | 2025-05-05 13:54 | DI.VRAD_ITS ---
PROCEDURE INFORMATION: Exam: CT Maxillofacial With Contrast Exam date and time: 05/05/2025 12:07 PM Age: 75 years old Clinical indication: Other: Dental abscess #16 pressure left side of face TECHNIQUE: Imaging protocol: Computed tomography of the face with contrast. Contrast material: OMNIPAQUE 350; Contrast volume: 100 ml; Contrast route: INTRAVENOUS (IV); COMPARISON: CT HEAD WO/W 02/06/2025 12:07 FINDINGS: Limitations: Severely degraded image quality secondary to dental amalgam streak artifact. Paranasal sinuses: Mucosal thickening of the maxillary sinuses. Minimal mucosal thickening of the bilateral ethmoid air cells. Orbital cavities: Orbits are normal. Globes are unremarkable. Auditory system: Debris within the right and left external auditory canal. Teeth: The right and left posterior molars are within the maxillary bone. Incomplete distension of the left posterior upper molar with large defect involving the posteromedial molar tooth, series 2 image 90 and series 6, image 37. Incomplete distension of the right posterior upper molar. Bones: No acute fracture. Soft tissues: Asymmetric soft tissue swelling of the left cheek and soft tissues of the left oral cavity. IMPRESSION: 1. Marked limited image quality as discussed above. Can not evaluate for possible tooth abscess. Asymmetric soft tissue swelling of the left cheek and left oral cavity. 2. Large defect involving the left posterior upper molar and small defect involving the right posterior molar consistent with oral cavities. The right and left posterior molars have not descended into the mouth. Recommend dental consultation. 3. Sinus disease as discussed above. 4. Debris within the right and left external auditory canals. Removal of the debris may improve hearing and balance. Dictated and Authenticated by: Collette Jackson MD. Orderin Hermila Kimball MD
[2025-05-05 14:41] VITALS: BP 174/89; PULSE 74; RESP 18; O2SAT 98
--- NOTE | 2025-05-05 15:26 | W.ED.GENAD ---
Discharge Plan Disposition Patient Disposition: Home Condition: Stable Discharge Details Clinical Impression: Abscess, dental, Visual changes Primary Care Provider: Melida Brown ED Provider: Rehana Cleaning Home Meds and New Rx's Prescriptions: Continued acetaminophen [Tylenol Extra Strength] 500 mg tablet 500 mg PO Q6H PRN Patient Comments: takes one to two tabs as needed Wendy/cinnamon 0.5 tsp PO DAILY Patient Comments: 1/2 teaspoon each ascorbate calcium (vitamin C) 500 mg tablet 1 gm PO DAILY magnesium glycinate 118 mg magnesium capsule 360 mg PO DAILY amoxicillin-pot clavulanate 875-125 mg tablet 1 tab PO BID Patient Comments: TAKE ONE TABLET BY MOUTH TWICE DAILY Discharge Instructions Instructions: Dental Pain (DC) Additional Instructions: please follow-up with pcp regarding your blood pressure continue on the antibiotic follow-up with ophthalmology on thursday follow-up with oral surgery at your scheduled appt please return with fever, chills, worsening pain, persistent or worsening vision changes, or should any new concerns arise Referrals: Melida Brown [Primary Care Provider, Medicine] Discharge Data Discharge Date/Time-TO BE ENTERED AT DEPARTURE: 05/05/25 14:43 HPI General Date/Time Provider Initiated Documentation: 05/05/25 11:06. HPI Narrative: 75-year-old female with left upper dental pain and intermittent blurred vision. Pressure improved since starting antibiotics a week ago. Dentist prescribed an additional 6 days of antibiotics, starting today. No fever, chills, headache, or current visual changes. No trismus or difficulty swallowing. Intermittent blurred vision. Underwent laser surgery in 12/2024 for similar symptoms. Related Data Home Medications ?Medication ?Instructions ?Recorded ?Confirmed ascorbate calcium (vitamin C) 500 1 gm PO DAILY 05/17/20 05/05/25 mg tablet Wendy/cinnamon 0.5 tsp PO DAILY 10/07/22 05/05/25 acetaminophen 500 mg tablet 500 mg PO Q6H PRN 06/16/24 05/05/25 (Tylenol Extra Strength) magnesium glycinate 360 mg PO DAILY 04/29/25 05/05/25 amoxicillin 875 mg-potassium 1 tab PO BID 05/05/25 05/05/25 clavulanate 125 mg tablet Allergies Allergy/AdvReac Type Severity Reaction Status Date / Time polyethylene glycol AdvReac Intermediate localized Verified 05/05/25 11:11 swelling. numbness/tingling General Stated Complaint: Recheck ARLENE: 4 Exam Narrative Exam Narrative: General Appearance: Alert and oriented, in no acute distress. Vital signs: Within normal limits. HEENT: Rj-Pen pressures: 18 in right eye, 18.2 in left eye. Pupils equal, round, reactive to light and accommodation. Extraocular muscles intact. Ulcerations on upper palate, no fluctuant abscess. Oropharynx patent. Uvula midline. Respiratory: Within normal limits. Lymphatic: Submandibular lymphadenopathy present. Skin: Warm and dry, no rash. Neurological: Normal. Course Vital Signs Vital signs: Vital Signs Temperature 36.9 C 05/05/25 11:09 Pulse 99 H 05/05/25 11:09 Respiratory Rate 16 05/05/25 11:09 Blood Pressure 210/105 H 05/05/25 11:09 Pulse Oximetry 98 05/05/25 11:09 Temperature 36.9 C 05/05/25 11:09 Pulse 74 05/05/25 14:41 Respiratory Rate 18 05/05/25 14:41 Blood Pressure 174/89 H 05/05/25 14:41 Pulse Oximetry 98 05/05/25 14:41 Pain Level 5 05/05/25 11:09 Lab/Test Results Lab/Test Results: Laboratory Tests Range/Units 05/05/25 12:00 WBC (4.4-10.8) 10^3/uL 7.20 RBC (3.93-5.22) 10^6/uL 4.24 Hgb (11.2-15.7) g/dL 12.8 Hct (36.0-46.0) % 39.1 MCV (80-95) fL 92 MCH (27.0-33.0) pg 30.2 MCHC (32.0-36.0) % 32.7 RDW (11.7-14.6) % 11.9 Plt Count (130-400) 10^3/uL 293 MPV (8.0-11.0) fL 9.6 Immature Gran % % 0.3 Neutrophils % % 62.3 Lymphocytes % % 29.9 Monocytes % % 5.1 Eosinophils % % 1.4 Basophils % % 1.0 Nucleated RBC % (0.0-0.3) % 0.0 Absolute Neutrophils (1.2-6.7) 10^3/uL 4.49 Absolute Lymphocytes (1.2-3.4) 10^3/uL 2.15 Absolute Monocytes (0.1-0.8) 10^3/uL 0.37 Absolute Eosinophils (0.0-0.7) 10^3/uL 0.10 Absolute Basophils (0.0-0.2) 10^3/uL 0.07 Sodium (136-145) mmol/L 141 Potassium (3.5-5.1) mmol/L 3.9 Chloride (98-107) mmol/L 103 Carbon Dioxide (21.0-32.0) mmol/L 26.4 Anion Gap (3-11) mmol/L 11.6 H BUN (7-18) mg/dL 14 Creatinine (0.55-1.02) mg/dL 0.8 Est GFR (CKD-EPI 2020) (mL/min/1.73m2) 76.31 Glucose (74-106) mg/dL 125 H Calcium (8.5-10.1) mg/dL 9.1 Total Bilirubin (0.2-1.0) mg/dL 0.3 AST (15-37) U/L 17 ALT (14-59) U/L 23 Alkaline Phosphatase (46-116) U/L 73 Total Protein (6.4-8.2) g/dL 7.4 Albumin (3.4-5.0) g/dL 4.[address] head and facial bones with contrast: No acute abnormalities. Initial Assessment: 75-year-old female presents with left upper dental pain and intermittent blurred vision. No fever, chills, headache, or current visual changes. Tenderness over molar #16, no trismus or difficulty swallowing. Differential Diagnosis: - Dental infection: Tenderness over molar #16, improvement with antibiotics. Continue Augmentin, follow-up with oral surgery on 05/25/2025. - Dendritic keratitis: Intermittent blurred vision, no current visual changes, asymptomatic, low suspicion. Follow up with lance crewmember. - HSV infection: Ulcerations on upper palate, asymptomatic, HSV test ordered. No additional medication prescribed. ED Course: - Rj-Pen pressures: 18 in right eye, 18.2 in left eye. - Pupils: Equal, round, reactive to light and accommodation. - Extraocular muscles: Intact. - CT head and facial bones with contrast: No acute abnormalities, read by me. - HSV test: Ordered for palate ulcerations. Final Assessment: Patient evaluated for dental pain and intermittent blurred vision. CT head and facial bones showed no acute abnormalities. HSV test ordered for palate ulcerations. Patient stable for discharge. Clinical Impression: - Dental infection - Intermittent blurred vision - Palate ulcerations Disposition: - Discharge: Home, stable for discharge, follow-up with oral surgery on 05/25/2025. - Follow-Up: Oral surgery on 05/25/2025, lance crewmember in outpatient setting. MDM Components Evaluation: - Number of Differential Diagnoses or Management Options: Dental infection, Dendritic keratitis, HSV infection. - Amount and Complexity of Data Reviewed: Rj-Pen pressures, Pupils examination, Extraocular muscles examination, CT head and facial bones with contrast, HSV test. - Risk of Complication and Morbidity or Mortality: Low suspicion for Dendritic keratitis, stable for discharge. PFSH All Active Problems (Updated 05/05/25 @ 14:27 by DAISY Dixon) Visual changes (Acute) Abscess, dental (Acute) Dental infection (Acute) Post-menopausal bleeding (Acute) 07/14/24. EMBx. Fluid in endometrial cavity (Acute) Rectal discharge (Acute) Dysuria (Acute) Urinary frequency (Acute) Abdominal pressure in right upper quadrant (Acute) Benign liver cyst (Acute) Family hx of aortic aneurysm (Acute) Exposure to strep throat (Acute) Screening for diabetes mellitus (Acute) Right lumbar radiculopathy (Acute) R L4-5 Disc Herniation and Synovial Facet Cyst Gastrocnemius strain, left (Acute) Spinal stenosis (Acute) Encounter for screening for other viral diseases (Acute) Elevated systolic blood pressure reading without diagnosis of hypertension (Acute) Facial lesion (Acute) Encounter for colorectal cancer screening (Acute) Medical History (Updated 05/05/25 @ 14:27 by DAISY Dixon) Elevated fasting glucose 2013 = 106. 2017 = 106 Actinic keratosis Palpitations (~12/2008) palpitations and syncope - Cardiology evaluation negative Surgical History Ligation of fallopian tube (~1975) Cervical Procedure 1993 cryo Family History Mother Rheumatoid arthritis severe Father Alzheimer's disease Sister Hyperlipidemia Grandmother Heart disease mat aunt Heart disease mat first cousin Personal history of malignant neoplasm Breast CA paternal uncle Alzheimer's disease undiagnosed dementia Brother Melanoma Social History (Updated 05/24/20 @ 08:01 by Adeline Nunez RN) Smoking/Tobacco Use Status: Never Smoking risk assessment performed?: Yes Alcohol Intake: never Drug use: Never Substance use type: does not use Current gender identity: female Special kevon needs: No Do you feel safe at home: Yes Do you feel safe in your relationship?: Yes Female Reproductive History Menstrual Menopause type: natural
[2025-05-07 11:06] LABS: HSV 1 DNA Result Negative (Negative); HSV 2 DNA Result Negative (Negative)
== END 2025-05-05 14:43 | disposition home or self-care (01) ==
PROVIDERS: Emergency Provider Physician Assistant; PCP Nurse Practitioner Family
DX: K04.7 Periapical abscess without sinus (principal); H53.15 Visual distortions of shape and size
CPT/HCPCS: 99285; 99284; 80053; 87529; 70470; 70487; 85025; J3490

== ENCOUNTER 2025-05-23 01:43 | Outpatient (CLI) | payer OTHER, SELFPAY ==
--- NOTE | 2025-05-23 | DI.MRI_ITS ---
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 TECHNIQUE: Multiplanar multisequence MRI of the Lumbar spine was performed. COMPARISON: MR MR LUMBAR SPINE WO/W from 04/29/2023 FINDINGS: Bones: The last intervertebral disc space is designated the L5/S1 level for the numbering purpose of this examination. Stable mild compression fracture of the superior endplate of L1. The remaining vertebral body heights are well maintained. Alignment: Unremarkable. No suspicious bony lesions.. Hemangioma T12. Cord: The conus tip ends at the T12 level. It is of normal size and signal intensity. T12-L1: Mild diffuse disc bulging. Small endplate osteophytes. No focal disc herniation is present. No central spinal canal stenosis.No neural foraminal stenosis. L1-2:Mild disc bulging. Small endplate osteophytes. No focal disc herniation is present. No central spinal canal stenosis.No neural foraminal stenosis. L2-3:Disc osteophytes seen projecting mildly posteriorly. No focal disc herniation is present. No central spinal canal stenosis.No neural foraminal stenosis. L3-4: No focal disc herniation is present. Facet degenerative changes and ligamentous hypertrophy produce mild central canal stenosis. Similar to prior.No neural foraminal stenosis. L4-5:The disc height is maintained. There is mild concentric disc bulging and small endplate osteophytes. There are facet degenerative changes and ligamentous hypertrophy which combine to produce moderate to severe central canal stenosis, similar to prior. L5-S1: Moderate loss of disc height. Mild due disc osteophytes. Mild facet degenerative changes.No focal disc herniation is present. No central spinal canal stenosis.No neural foraminal stenosis. The visualized SI joints and sacrum are unremarkable. Soft tissues: The paraspinal soft tissues are unremarkable. Liver cysts again noted. IMPRESSION: Degenerative disc changes and facet degenerative changes combine to produce mild central canal stenosis at L3-4 and moderate to severe central canal stenosis at L4-5. Findings similar to prior.. DATA REPOSITORY:
== END 2025-05-23 02:03 ==
LOC: DI 01:44
PROVIDERS: PCP Nurse Practitioner Family; Visit Provider Nurse Practitioner Family
DX: M43.06 Spondylolysis, lumbar region (principal)
CPT/HCPCS: 72148

== ENCOUNTER 2025-05-25 18:13 | Observation (INO) | payer OTHER, SELFPAY ==
[2025-05-25] VITALS (89 sets, daily range): BP systolic 92–209; BP diastolic 51–92; PULSE 59–87; RESP 10–17; TEMP 36.7; O2SAT 92–98
--- NOTE | 2025-05-25 18:00 | RT.EKG_ITS ---
APPROVED REPORT Exam: Resting ECG Reason for Exam: Chest tightness Patient Location: E HR:79 bpm ECG Measurements Heart Rate 79 AXIS IA 150 P 44 QRSd 84 QRS -23 QT 373 T 67 QTc 429 Conclusion Sinus rhythm, rate 79 No interval abnormalities No STEMI Q waves inf and ant leads unchanged from priors
[2025-05-25 18:49] LABS: Abs Immature Grans 0.01 10^3/uL (0.0-0.06); HCT 38.0 % (36.0-46.0); HGB 12.8 g/dL (11.2-15.7); Immature Grans % 0.1 %; MCH 29.8 pg (27.0-33.0); MCHC 33.7 % (32.0-36.0); MCV 89 fL (80-95); MPV 9.5 fL (8.0-11.0); Platelet Count 297 10^3/uL (130-400); RBC 4.29 10^6/uL (3.93-5.22); RDW 11.5 % (11.7-14.6); RDW-SD 36.8 fL; WBC 7.55 10^3/uL (4.4-10.8)
--- NOTE | 2025-05-25 18:49 | W.ED.GENAD ---
Discharge Plan Disposition Patient Disposition: Admit to [facility] Condition: Stable Discharge Details Clinical Impression: Hypertensive emergency, Angina pectoris, unstable Primary Care Provider: Melida Brown ED Provider: Nakia Ferraro Home Meds and New Rx's Prescriptions: No Action acetaminophen [Tylenol Extra Strength] 500 mg tablet 500 mg PO Q6H PRN Patient Comments: takes one to two tabs as needed Wendy/cinnamon 0.5 tsp PO DAILY Patient Comments: 1/2 teaspoon each ascorbate calcium (vitamin C) 500 mg tablet 1 gm PO DAILY magnesium glycinate 118 mg magnesium capsule 360 mg PO DAILY amoxicillin-pot clavulanate 875-125 mg tablet 1 tab PO BID Patient Comments: TAKE ONE TABLET BY MOUTH TWICE DAILY HPI General Mode of arrival: ambulatory. Date/Time Provider Initiated Documentation: 05/25/25 18:21. Limitations to Documentation: no limitations. Information obtained by: patient and old records reviewed. HPI Narrative: This is a 75-year-old female patient with a past medical history significant for elevated blood pressure during recent clinic visits, a recent dental abscess awaiting maxillofacial surgical consultation, and a history of hyperlipidemia who is presenting for evaluation of chest pain and elevated blood pressure. The patient reports that about 2 hours prior to arrival she was sitting at home, resting, and had a sudden onset of pressure in the left side of the chest. She reports that this pressure is worse when she takes a deep breath, seems to come and go on its own otherwise it is not reproducible with movement, palpation, or position. She has completed courses of antibiotics for unknown dental infection, but does note persistent sinus and nasal pressure that has been present since her diagnosis on May 05. She states that she had an episode of discomfort similar to this back on the that resolved on its own, but does not typically have episodes of chest discomfort. The patient reports that she has been seen by some urgent care providers and was noted to have elevated blood pressures. She was trialed on lisinopril, followed by HCTZ but did not tolerate these medications. She reports that they made her feel generally unwell. She had a consultation with her oral surgeon today, but her blood pressure was concerning and no procedures or extractions were performed. At this time she rates her pain at a 1-2 out of 10, endorses no radiation, no associated nausea, diaphoresis, or shortness of breath. Related Data Home Medications ?Medication ?Instructions ?Recorded ?Confirmed ascorbate calcium (vitamin C) 500 1 gm PO DAILY 05/17/20 05/25/25 mg tablet Wendy/cinnamon 0.5 tsp PO DAILY 10/07/22 05/25/25 acetaminophen 500 mg tablet 500 mg PO Q6H PRN 06/16/24 05/25/25 (Tylenol Extra Strength) magnesium glycinate 360 mg PO DAILY 04/29/25 05/25/25 amoxicillin 875 mg-potassium 1 tab PO BID 05/05/25 05/25/25 clavulanate 125 mg tablet Allergies Allergy/AdvReac Type Severity Reaction Status Date / Time lisinopril Allergy Intermediate Other (See Verified 05/25/25 18:23 Comment) polyethylene glycol AdvReac Intermediate localized Verified 05/25/25 18:20 swelling. numbness/tingling hydrochlorothiazide AdvReac Other (See Verified 05/25/25 18:23 Comment) General Stated Complaint: Chest Pain ARLENE: 3 Exam Narrative Exam Narrative: Gen: Awake and alert, in no apparent distress HEENT: Non-icteric sclera Neck: Supple Lungs: No apparent respiratory distress, normal respiratory effort. Lung sounds clear and equal bilaterally without wheezes, rhonchi, rales CV: Appears well perfused, heart with regular rate and rhythm, strong and symmetrical distal pulses. Deep breath causes a worsening of her left-sided chest pressure. Abdomen: Non-distended MSK: Moves 4 extremities without apparent limitation in ROM, soft, nontender Skin: Visualized skin without rashes, cyanosis. No unilateral calf swelling or tenderness. Neuro: Normal Gait, no obvious focal deficits or facial asymmetry. Speaks in full, clear sentences. Psych: Appropriate for situation. Course Vital Signs Vital signs: Vital Signs Temperature 36.7 C 05/25/25 18:14 Pulse 82 05/25/25 18:14 Respiratory Rate 16 05/25/25 18:14 Blood Pressure 209/91 H 05/25/25 18:14 Temperature 36.7 C 05/25/25 18:14 Temperature Source Oral 05/25/25 18:14 Pulse 73 05/25/25 18:40 Pulse 73 05/25/25 18:40 Respiratory Rate 16 05/25/25 18:41 Respiratory Effort Normal 05/25/25 18:41 Respiratory Depth Normal 05/25/25 18:41 Respiratory Pattern Normal 05/25/25 18:41 Blood Pressure 189/92 H 05/25/25 18:40 Blood Pressure Position Sitting 05/25/25 18:14 Pulse Oximetry 95 05/25/25 18:40 Oxygen Delivery Method Room Air 05/25/25 18:14 Oxygen Flow Rate 0 05/25/25 18:14 Medical Decision Making This is a 75-year-old female patient presenting for evaluation of chest pain and hypertension. My differential includes but is not limited to ACS including STEMI, NSTEMI, unstable angina, certainly considered arrhythmia, pericarditis/myocarditis, aortic pathology (though I am reassured by the lack of neurodeficits and the symmetrical pulses). Considered hypertensive urgency/emergency, considered pulmonary abnormalities including pneumonia, bronchitis, pleural effusion, pulmonary edema, reactive airway disease, pneumothorax. The patient is without tachycardia or hypoxia, but in this patient who has reproduction of pain with deep breath and does not meet PERC criteria due to her age pulmonary embolism was considered. No GI symptoms or vomiting to suggest Boerhaave's, esophagitis, peptic ulcer disease, pancreatitis. Considered musculoskeletal pathologies including costochondritis, chest wall pain. I obtained and reviewed an EKG, which shows a sinus rhythm with evidence of LVH, old Q waves unchanged from priors in the inferior and anterior leads, but no STEMI or other acute abnormalities to explain her symptoms. She was provided with a dose of aspirin, as well as a nitroglycerin, with significant improvement in both her pain and her blood pressure after that initial intervention. We will obtain laboratory studies to include CBC, CMP, magnesium, troponin, BNP, and D-dimer. I will obtain a chest x-ray. -I independently interpreted the laboratory studies, which show no significant leukocytosis, anemia, or thrombocytopenia. The chemistry panel is without evidence of electrolyte abnormality, kidney dysfunction, or liver injury. Lipase is low, initial troponin is negative, BNP is not elevated. 1 and 3-hour delta troponins are without interval increase, and chest x-ray notes no abnormalities which might explain the patient's symptoms. Her mediastinum is not widened. While in the emergency department, the patient had waxing and waning of her chest pain, that corresponds directly to elevations in her blood pressure. When her blood pressure decreased to the 120s to 140s with nitroglycerin she was pain-free, blood pressure increased to the 170s and her pain returned. I did trial a dose of labetalol intravenously which offered her approximately 1-1/2 hours of pain relief, before her blood pressure increased again and her pain returned. Ultimately I am most concerned for hypertensive urgency (no evidence of endorgan damage though the chest pain in this patient with cardiac risk factors to include age, hyperlipidemia, hypertension is certainly concerning for unstable angina) and feel that she would benefit from further blood pressure management and admission. I initiated a nicardipine drip with a goal of approximately 20% blood pressure reduction (systolics of 140-160s) and ultimately with the goal to relieve the patient's ongoing pain. Unfortunately, the nicardipine was not effective at reducing her pain despite appropriate reduction in her blood pressure, and ultimately was transitioned to a nitroglycerin drip to good effect. At the hospitalist recommendation I did reach out to cardiology at [facility], who feel that it is reasonable for her to remain in our facility given her negative troponins and nonischemic EKG. They do recommend that we get an echo in the morning and if that was to show wall motion abnormality or a reduced EF we should consider reinitiating contact with cardiology to discuss transfer to a catheterization and stress test capable facility. The hospitalist has graciously accepted this patient for admission to their service, and the patient reports improvement in her pain on the nitroglycerin drip. I did have a discussion with her regarding her dental abscess and have held initiation of antibiosis as she was evaluated by an oral surgeon today, had CT imaging and they did not elect to initiate her on any new antibiotics. Certainly her oral surgeon could be contacted tomorrow during business hours to discuss the specifics of their workup today. As she has no evidence of sepsis or elevated white blood cell count, and an otherwise reassuring exam I feel that it is safe to hold at this time. Patient was transferred from this department to the ICU without incident. Nakia Ferraro MD Critical Care Time Critical Care Time Critical Care Time: Yes Total Critical Care Time: 45 Attestation: Upon my evaluation, this patient had a high probability of imminent or life-threatening deterioration due to hypertensive emergency and unstable angina, which required my direct attention, intervention, and personal management. I have personally provided 45 minutes of critical care time exclusive of time spent on separately billable procedures. Time includes review of laboratory data, radiology results, discussion with consultants, and monitoring for potential decompensation. Interventions were performed as documented above. Nakia Ferraro MD PFSH All Active Problems (Updated 05/25/25 @ 23:37 by Nakia Ferraro MD) Angina pectoris, unstable (Acute) Hypertensive emergency (Acute) Visual changes (Acute) Abscess, dental (Acute) Dental infection (Acute) Post-menopausal bleeding (Acute) 07/14/24. EMBx. Fluid in endometrial cavity (Acute) Rectal discharge (Acute) Dysuria (Acute) Urinary frequency (Acute) Abdominal pressure in right upper quadrant (Acute) Benign liver cyst (Acute) Family hx of aortic aneurysm (Acute) Exposure to strep throat (Acute) Screening for diabetes mellitus (Acute) Right lumbar radiculopathy (Acute) R L4-5 Disc Herniation and Synovial Facet Cyst Gastrocnemius strain, left (Acute) Spinal stenosis (Acute) Encounter for screening for other viral diseases (Acute) Elevated systolic blood pressure reading without diagnosis of hypertension (Acute) Facial lesion (Acute) Encounter for colorectal cancer screening (Acute) Medical History (Updated 05/25/25 @ 23:37 by Nakia Ferraro MD) Elevated fasting glucose 2013 = 106. 2017 = 106 Actinic keratosis Palpitations (~12/2008) palpitations and syncope - Cardiology evaluation negative Surgical History Ligation of fallopian tube (~1975) Cervical Procedure 1993 cryo Family History Mother Rheumatoid arthritis severe Father Alzheimer's disease Sister Hyperlipidemia Grandmother Heart disease mat aunt Heart disease mat first cousin Personal history of malignant neoplasm Breast CA paternal uncle Alzheimer's disease undiagnosed dementia Brother Melanoma Social History (Updated 05/24/20 @ 08:01 by Adeline Nunez RN) Smoking/Tobacco Use Status: Never Smoking risk assessment performed?: Yes Alcohol Intake: never Drug use: Never Substance use type: does not use Current gender identity: female Special kevon needs: No Do you feel safe at home: Yes Do you feel safe in your relationship?: Yes Female Reproductive History Menstrual Menopause type: natural
[2025-05-25] MEDS: Aspirin 81 MG CHEW 324 MG CH (19:01)
[2025-05-25] MEDS: nitroGLYcerin 0.4 MG TAB SL ×2 (19:02→19:45)
[2025-05-25 19:11] LABS: ALT 22 U/L (14-59); AST 16 U/L (15-37); Albumin 4.4 g/dL (3.4-5.0); Alkaline Phosphatase 72 U/L (46-116); Anion Gap 10.5 mmol/L (3-11); BUN 11 mg/dL (7-18); Bilirubin, Total 0.5 mg/dL (0.2-1.0); CO2 26.5 mmol/L (21.0-32.0); Calcium 9.2 mg/dL (8.5-10.1); Chloride 97 mmol/L (98-107); Estimated GFR 76.31 (mL/min/1.73m2); Glucose 193 mg/dL (74-106); Lipase 35 U/L (<78); Magnesium 1.8 mg/dL (1.8-2.4); NT-proBNP 290 pg/mL (<300); Potassium 3.6 mmol/L (3.5-5.1); Sodium 134 mmol/L (136-145); Total Protein 7.3 g/dL (6.4-8.2); Troponin I 8 ng/L (<or=51)
--- NOTE | 2025-05-25 19:25 | DI.RAD_ITS ---
Exam(s) XR CHEST 2V PA LATERAL EXAM: XR CHEST 2V PA LATERAL CLINICAL HISTORY: Chest pain TECHNIQUE: 2D digital imaging was performed. Two views. COMPARISON: No exams were available for comparison FINDINGS: HEART: Normal size. Aorta: Not dilated. PULMONARY VASCULATURE: Normal. MEDIASTINUM: Unremarkable. LUNGS: Mild left basilar scarring, otherwise clear. PLEURAL SPACE: No pleural effusion or pneumothorax. BONE:Unremarkable for age. SOFT TISSUES: Unremarkable. IMPRESSION: No acute abnormality. The preliminary [facility] report was reviewed. DATA REPOSITORY: RADIATION DOSE DELIVERED:
--- NOTE | 2025-05-25 20:05 | DI.[facility]_ITS ---
PROCEDURE INFORMATION: Exam: XR Chest Exam date and time: 05/25/2025 7:24 PM Age: 75 years old Clinical indication: Chest pressure; Chest pain TECHNIQUE: Imaging protocol: Radiologic exam of the chest. Views: 2 views. COMPARISON: CR XR CHEST 2V PA LATERAL 04/01/2023 10:52 AM FINDINGS: Lungs: Minor left basilar subsegmental atelectasis and/or scarring, similar to prior. No airspace consolidation. Pleural spaces: No pleural effusion. No pneumothorax. Heart/Mediastinum: No cardiomegaly. Bones/joints: No acute fracture. Gastrointestinal tract: An upper abdominal small bowel loop is likely upper limits of normal, gas distended. IMPRESSION: Minor left basilar subsegmental atelectasis and/or scarring, similar to prior. Dictated and Authenticated by: Nely Salas MD. Orderin St. Ryne Yee MD
[2025-05-25 20:14] LABS: Troponin I 10 ng/L (<or=51)
[2025-05-25 20:18] LABS: Lab Add On Test DONE
[2025-05-25] MEDS: Labetalol 100 MG/20 ML VIAL 10 MG IVP (20:34)
[2025-05-25] MEDS: ACETAMINOPHEN 1,000 MG/100 ML BAG 400 MG IVPB (20:34)
[2025-05-25 20:49] LABS: D-Dimer 801 ng/mlFEU (<500)
[2025-05-25 21:46] LABS: Troponin I 10 ng/L (<or=51)
[2025-05-25] MEDS: niCARdipine 25 MG in Normal Saline 240 ML 50 MG IV (21:57)
--- NOTE | 2025-05-25 22:08 | NUR.NOTE ---
Nursing Note: report and transfer of care given to Thien Mistry from Xenia Bear RN at this time
[2025-05-25] MEDS: nitroGLYcerin in D5W 50 MG/250 ML BTL IV (23:30)
[2025-05-26] VITALS (99 sets, daily range): BP systolic 90–177; BP diastolic 50–99; PULSE 56–81; RESP 10–30; TEMP 36–37.2; O2SAT 91–97
--- NOTE | 2025-05-26 00:21 | W.PM.HP.N ---
Date of service: 05/26/25 Time of Service: 00:22 Assessment and Plan Assessment and plan (1) Hypertensive emergency: Start date: 05/26/25 Status: Acute Assessment and plan: This is a 75-year-old lady with borderline blood pressure elevation most of her adult life now with sudden increase and systolic blood pressure above 200 and diastolic above 110 with symptoms of left chest pressure associated with her elevated blood pressure occasionally. The first episode of chest pressure was with exertion working outside in early May but the recurrence which was more severe and still without associated symptoms occurred at rest sitting in her chair before presentation to the ED. She was seen by oral surgery for abscess which has been treated with oral antibiotics and now awaiting extraction. She had a markedly elevated blood pressure at that visit the day of presentation to the ED. She is now well-controlled on nitroglycerin infusion and has no chest pressure. Her troponins have been negative and she will follow-up with echocardiogram in the morning with results to determine plan of care. If positive we should rediscuss possible non-STEMI or unstable angina with [facility] [place] and if negative we could adjust oral medical therapy with outpatient evaluation of her chest pressure or atypical chest pain. She did have a good response to lisinopril but did have angioedema. She may be a candidate for ARB. She also may need workup for secondary hypertension because of the sudden onset. She is a full code. (2) Atypical chest pain: Start date: 05/26/25 Status: Acute Assessment and plan: Nausea responsive and at rest and with exertion by history in the recent month. Evaluation as above. (3) Abscess, dental: Start date: 05/05/25 Status: Resolved Assessment and plan: Patient is abscess has not drained significantly and there is no swelling with plans for extraction with oral surgeon once patient's blood pressure is better controlled. The oral surgeon stated he would not do surgery on her unless her diastolic blood pressure was at least less than 100. (4) Hyperlipidemia: Status: Chronic Assessment and plan: Continue diet controlled but consider statin therapy because of cardiac risk. She is hesitant to take medication because of her PEG allergy. (5) Chronic hyperglycemia: Status: Chronic Assessment and plan: Borderline with diet control at this time. Patient does not meet criteria for diabetes at this time. History of Present Illness History of Present Illness Chief Complaint: Resting left chest pressure with elevated blood pressure Narrative: This is a 75-year-old female patient who has a recent diagnosis of hypertension after being seen on May 05, 2025 for a sinus infection with dental abscess now having completed treatment for this problem. She has chronically had borderline hypertension and after May 05 she was diagnosed with hypertension she had persistent blood pressure elevation and trial lisinopril and hydrochlorothiazide which made her feel generally unwell and she stopped these medications. The hydrochlorothiazide flared her PEG allergy and lisinopril may have caused mild angioedema about her nasal area. She has had left-sided chest pressure with her blood pressure elevation in the recent past, and on the day of presentation, she had onset of resting left chest pressure without radiation or associated symptoms, 2 hours prior to her evaluation at the ED. She was given nitroglycerin sublingually which did lower her systolic blood pressure and her chest pain would disappear. This was only short acting in the ED and as she was being observed, her blood pressure would once again rise with a systolic in the 200s and her chest pain would recur. She states that her discomfort is more of a pressure and not squeezing but more severe this episode in the past. She first had chest pressure when she was walking to her mailbox in early May and then had resting chest pressure just prior to this evaluation while sitting in chair at home. Because of persistent hypertension in the ED, the patient was initially started on a nicardipine drip and her blood pressure was controlled with no chest pressure but because of her response to nitroglycerin resolving her chest pain as well as improving her blood pressure, [facility] [place] was consulted and advised nitroglycerin infusion for blood pressure control and chest symptom control. Troponins were negative and will be trended. [facility] [place] did not advise heparin infusion. She is not being considered a non-STEMI at this time but they did state that if she had an echocardiogram tomorrow revealing a decreased ejection fraction and or definite wall motion abnormalities, she should be treated as unstable angina and then reconsult with [facility] [place] for possible transfer. At that time she also may be initiated on heparin infusion. She was loaded with aspirin in the ED. Heparin was not initiated as discussed. We will admit the patient to the ICU with continued nitroglycerin drip for blood pressure and chest pain control. Troponins will be trended in the morning. If she has recurrent chest pain despite blood pressure control we should reevaluate for ischemic heart disease. She is a full code. Review of Systems Narrative: 13 point review of systems otherwise unrevealing or stable. Patient does plan to have oral surgery for dental abscess once her blood pressure is better controlled. Oral surgeon was concerned about her hypertension during her visit the day of her ED visit. PFSH All Active Problems (Updated 05/26/25 @ 00:41 by Andreas Pro) Chronic hyperglycemia (Chronic) Atypical chest pain (Acute) Angina pectoris, unstable (Acute) Hypertensive emergency (Acute) Visual changes (Acute) Dental infection (Acute) Post-menopausal bleeding (Acute) 07/14/24. EMBx. 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 2010 total chol = 242, TG = 63, HDL =62, LDL = 181. 2013 HDL 50 LDL 171 2018 Total 206. LDL 178. HDL 65 Encounter for colorectal cancer screening (Acute) Medical History (Updated 05/26/25 @ 00:41 by Andreas Pro) Elevated fasting glucose 2013 = 106. 2018 = 106 Actinic keratosis Palpitations (~12/2008) palpitations and syncope - Cardiology evaluation negative Surgical History Ligation of fallopian tube (~1975) Cervical Procedure 1993 cryo Family History Mother Rheumatoid arthritis severe Father Alzheimer's disease Sister Hyperlipidemia Grandmother Heart disease mat aunt Heart disease mat first cousin Personal history of malignant neoplasm Breast CA paternal uncle Alzheimer's disease undiagnosed dementia Brother Melanoma Social History Smoking/Tobacco Use Status: Never Smoking risk assessment performed?: Yes Alcohol Intake: never Drug use: Never Substance use type: does not use Current gender identity: female Special kevon needs: No Do you feel safe at home: Yes Do you feel safe in your relationship?: Yes Female Reproductive History Menstrual Menopause type: natural Meds Allergies and Home Medications Allergies Allergy/AdvReac Type Severity Reaction Status Date / Time lisinopril Allergy Intermediate Other (See Verified 05/25/25 18:23 Comment) polyethylene glycol AdvReac Intermediate localized Verified 05/25/25 18:20 swelling. numbness/tingling hydrochlorothiazide AdvReac Other (See Verified 05/25/25 18:23 Comment) Home Medications ?Medication ?Instructions ?Recorded ?Confirmed ?Type ascorbate calcium (vitamin C) 500 1 gm PO DAILY 05/17/20 05/25/25 History mg tablet Wendy/cinnamon 0.5 tsp PO DAILY 10/07/22 05/25/25 History acetaminophen 500 mg tablet 500 mg PO Q6H PRN 06/16/24 05/25/25 History (Tylenol Extra Strength) magnesium glycinate 360 mg PO DAILY 04/29/25 05/25/25 History amoxicillin 875 mg-potassium 1 tab PO BID 05/05/25 05/25/25 History clavulanate 125 mg tablet Exam Narrative Exam Narrative: General: Patient appears appropriate for age, alert and oriented x 3 and in no acute distress. HEENT: Normocephalic, eyes with pupils equal and reactive to light symmetrically, extraocular movement intact and sclera anicteric. Oropharynx with moist oral mucosa and fair dentition without swelling of the jaw. Neck: Supple without JVD. Back: Stooped posture without CVA tenderness. Lungs: Fair aeration and clear to auscultation percussion with no focalizing rales or rhonchi. Breast: Exam deferred. Heart: Regular rate and rhythm with 3/6 systolic murmur left sternal border, no gallops or rubs. Abdomen: Mildly obese, soft and nontender to palpation with no guarding or rebound. No palpable hepatosplenomegaly. Bowel sounds positive in all quadrants. Genitalia/rectal: Exam deferred. Extremities: Without clubbing, cyanosis or pitting edema. Good capillary refill. Skin: Normal color, warm and dry. Rough texture with diffuse actinic changes over sun exposed areas. Neuro: Cranial nerves II through XII grossly intact, no focalized motor deficits and no tremor. Psych: Normal affect and mood. No abnormal thought processes. Remote and recent memory intact. Results Imaging Imaging Studies: Exam: XR Chest Exam date and time: 05/25/2025 7:24 PM Age: 75 years old Clinical indication: Chest pressure; Chest pain TECHNIQUE: Imaging protocol: Radiologic exam of the chest. Views: 2 views. COMPARISON: CR XR CHEST 2V PA LATERAL 04/01/2023 10:52 AM FINDINGS: Lungs: Minor left basilar subsegmental atelectasis and/or scarring, similar to prior. No airspace consolidation. Pleural spaces: No pleural effusion. No pneumothorax. Heart/Mediastinum: No cardiomegaly. Bones/joints: No acute fracture. Gastrointestinal tract: An upper abdominal small bowel loop is likely upper limits of normal, gas distended. IMPRESSION: Minor left basilar subsegmental atelectasis and/or scarring, similar to prior. Labs 05/25/25 18:33 05/25/25 18:33 Labs: Laboratory Results - last 24 hr 05/25/25 05/25/25 05/25/25 18:33 19:42 20:14 WBC 7.55 RBC 4.29 Hgb 12.8 Hct 38.0 MCV 89 MCH 29.8 MCHC 33.7 RDW 11.5 L Plt Count 297 MPV 9.5 Immature Gran % 0.1 Neutrophils % 58.0 Lymphocytes % 33.8 Monocytes % 6.9 Eosinophils % 0.5 Basophils % 0.7 Nucleated RBC % 0.0 Absolute Neutrophils 4.38 Absolute Lymphocytes 2.55 Absolute Monocytes 0.52 Absolute Eosinophils 0.04 Absolute Basophils 0.05 D-Dimer 801 H Sodium 134 L Potassium 3.6 Chloride 97 L Carbon Dioxide 26.5 Anion Gap 10.5 BUN 11 Creatinine 0.8 Est GFR (CKD-EPI 2020) 76.31 Glucose 193 H Calcium 9.2 Magnesium 1.8 Total Bilirubin 0.5 AST 16 ALT 22 Alkaline Phosphatase 72 Troponin I 8 10 NT-Pro-B Natriuret Pep 290 Total Protein 7.3 Albumin 4.4 Lipase 35 Add-On Test Request DONE 05/25/25 21:24 WBC RBC Hgb Hct MCV MCH MCHC RDW Plt Count MPV Immature Gran % Neutrophils % Lymphocytes % Monocytes % Eosinophils % Basophils % Nucleated RBC % Absolute Neutrophils Absolute Lymphocytes Absolute Monocytes Absolute Eosinophils Absolute Basophils D-Dimer Sodium Potassium Chloride Carbon Dioxide Anion Gap BUN Creatinine Est GFR (CKD-EPI 2020) Glucose Calcium Magnesium Total Bilirubin AST ALT Alkaline Phosphatase Troponin I 10 NT-Pro-B Natriuret Pep Total Protein Albumin Lipase Add-On Test Request Last Vital Signs Temp 36.7 C 05/25/25 18:14 Pulse 74 05/26/25 00:18 Resp 17 05/26/25 00:18 BP 135/70 05/26/25 00:18 Pulse Ox 94 05/26/25 00:18 Time Spent Time spent with Patient: >75 minutes Time was spent: preparing to see the patient(eg.review tests), obtaining and/or reviewing separately otained hiistory, ordering medications,tests, procedures, referring, communicating with other health personal care worker, indepentently interpreting results, counseling the patient and care coordination
[2025-05-26 01:39] LABS: COVID-19 PCR Negative (Negative); RSV PCR Negative (Negative)
--- NOTE | 2025-05-26 02:22 | W.PC.ACHO ---
Registration Status: ADM THIERRY Primary Language: Preferred Language: Maltese ED Information & Data Chief Complaint Chest Pain 05/25/25 18:49 Triage Note Pt arrives to ED c/o chest 05/25/25 18:14 pressure which started around 1630 today. Pt states the pressure is LT sided; pt denies pain radiation. Pt denies SOB. No cardiac hx Pt was supposed to have oral surgery d/t a tooth abscess today but they were unable to do the procedure d/t HTN. Pt does not take meds for HTN. Medical / Surgical History (Last Reviewed 05/26/25 @ 00:31 by Andreas Pro) Elevated fasting glucose Actinic keratosis Palpitations (~12/2008) (Last Reviewed 05/26/25 @ 00:31 by Andreas Pro) Ligation of fallopian tube (~1975) Cervical Procedure Most Recent Vital Signs Temperature 36.9 C 05/26/25 01:32 Temperature Source Temporal Artery Scan 05/26/25 01:32 Pulse 63 05/26/25 01:21 Pulse 65 05/26/25 01:21 Respiratory Rate 12 05/26/25 01:21 Respiratory Effort Normal 05/26/25 01:32 Respiratory Depth Normal 05/26/25 01:32 Respiratory Pattern Normal 05/26/25 01:32 Blood Pressure 123/63 05/26/25 01:21 Blood Pressure Mean 84 05/26/25 01:21 Blood Pressure Position Sitting 05/25/25 18:14 Pulse Oximetry 95 05/26/25 01:32 Oxygen Delivery Method Room Air 05/26/25 01:32 Oxygen Flow Rate 0 05/26/25 01:32 Pain Level 0 05/25/25 19:07 Allergies lisinopril Allergy (Intermediate, Verified 05/25/25 18:23) Other (See Comment) Pt states she had lips numbness + tingling + burning. polyethylene glycol Adverse Reaction (Intermediate, Verified 05/25/25 18:20) localized swelling. numbness/tingling numbness and tingling with invisilign in mouth. hydrochlorothiazide Adverse Reaction (Verified 05/25/25 18:23) Other (See Comment) Pt states it made her feel, unwell. Active Medications Generic Name Dose Route Start Last Admin Trade Name Freq PRN Reason Stop Dose Admin Nitroglycerin/Dextrose 50 mg in 250 mls @ 0 mls/hr 05/25/25 23:15 05/26/25 01:17 IV 3 mls/hr INFUSION MELISA 3 mls/hr Protocol Titration Per Protocol Nitroglycerin 0.4 mg 05/25/25 18:41 05/25/25 19:45 Nitroglycerin 0.4 Mg Tab SL 0.4 mg Q5 MIN PRN X3 PRN Administration IV IV Catheter Type [Right Peripheral IV Forearm] IV Catheter Gauge [Right 18 Forearm] Diet Orders Category Date Time Status Heart Healthy Eating [DIET] Nutrition 05/26/25 Breakfast Active Diagnostics 05/26/25 05/26/25 05/26/25 Range/Units 05:35 01:34 00:58 WBC Pending (4.4-10.8) 10^3/uL RBC Pending (3.93-5.22) 10^6/uL Hgb Pending (11.2-15.7) g/dL Hct Pending (36.0-46.0) % MCV Pending (80-95) fL MCH Pending (27.0-33.0) pg MCHC Pending (32.0-36.0) % RDW Pending (11.7-14.6) % Plt Count Pending (130-400) 10^3/uL MPV Pending (8.0-11.0) fL Immature Gran % % Neutrophils % % Lymphocytes % % Monocytes % % Eosinophils % % Basophils % % Nucleated RBC % (0.0-0.3) % Absolute Neutrophils (1.2-6.7) 10^3/uL Absolute Lymphocytes (1.2-3.4) 10^3/uL Absolute Monocytes (0.1-0.8) 10^3/uL Absolute Eosinophils (0.0-0.7) 10^3/uL Absolute Basophils (0.0-0.2) 10^3/uL D-Dimer (<500) ng/mlFEU Sodium Pending (136-145) mmol/L Potassium Pending (3.5-5.1) mmol/L Chloride Pending (98-107) mmol/L Carbon Dioxide Pending (21.0-32.0) mmol/L Anion Gap Pending (3-11) mmol/L BUN Pending (7-18) mg/dL Creatinine Pending (0.55-1.02) mg/dL Est GFR (CKD-EPI 2020) Pending (mL/min/1.73m2) Glucose Pending (74-106) mg/dL Calcium Pending (8.5-10.1) mg/dL Magnesium (1.8-2.4) mg/dL Total Bilirubin Pending (0.2-1.0) mg/dL AST Pending (15-37) U/L ALT Pending (14-59) U/L Alkaline Phosphatase Pending (46-116) U/L Troponin I Pending Pending (<or=51) ng/L NT-Pro-B Natriuret Pep (<300) pg/mL Total Protein Pending (6.4-8.2) g/dL Albumin Pending (3.4-5.0) g/dL Lipase (<78) U/L TSH Pending COVID-19 Source Nasopharynx SARS-CoV-2 (PCR) Negative (Negative) Influenza Type A (PCR) Negative (Negative) Influenza Type B (PCR) Negative (Negative) RSV (PCR) Negative (Negative) Add-On Test Request 05/25/25 05/25/25 05/25/25 Range/Units 21:24 20:14 19:42 WBC (4.4-10.8) 10^3/uL RBC (3.93-5.22) 10^6/uL Hgb (11.2-15.7) g/dL Hct (36.0-46.0) % MCV (80-95) fL MCH (27.0-33.0) pg MCHC (32.0-36.0) % RDW (11.7-14.6) % Plt Count (130-400) 10^3/uL MPV (8.0-11.0) fL Immature Gran % % Neutrophils % % Lymphocytes % % Monocytes % % Eosinophils % % Basophils % % Nucleated RBC % (0.0-0.3) % Absolute Neutrophils (1.2-6.7) 10^3/uL Absolute Lymphocytes (1.2-3.4) 10^3/uL Absolute Monocytes (0.1-0.8) 10^3/uL Absolute Eosinophils (0.0-0.7) 10^3/uL Absolute Basophils (0.0-0.2) 10^3/uL D-Dimer (<500) ng/mlFEU Sodium (136-145) mmol/L Potassium (3.5-5.1) mmol/L Chloride (98-107) mmol/L Carbon Dioxide (21.0-32.0) mmol/L Anion Gap (3-11) mmol/L BUN (7-18) mg/dL Creatinine (0.55-1.02) mg/dL Est GFR (CKD-EPI 2020) (mL/min/1.73m2) Glucose (74-106) mg/dL Calcium (8.5-10.1) mg/dL Magnesium (1.8-2.4) mg/dL Total Bilirubin (0.2-1.0) mg/dL AST (15-37) U/L ALT (14-59) U/L Alkaline Phosphatase (46-116) U/L Troponin I 10 10 (<or=51) ng/L NT-Pro-B Natriuret Pep (<300) pg/mL Total Protein (6.4-8.2) g/dL Albumin (3.4-5.0) g/dL Lipase (<78) U/L TSH COVID-19 Source SARS-CoV-2 (PCR) (Negative) Influenza Type A (PCR) (Negative) Influenza Type B (PCR) (Negative) RSV (PCR) (Negative) Add-On Test Request DONE 05/25/25 Range/Units 18:33 WBC 7.55 (4.4-10.8) 10^3/uL RBC 4.29 (3.93-5.22) 10^6/uL Hgb 12.8 (11.2-15.7) g/dL Hct 38.0 (36.0-46.0) % MCV 89 (80-95) fL MCH 29.8 (27.0-33.0) pg MCHC 33.7 (32.0-36.0) % RDW 11.5 L (11.7-14.6) % Plt Count 297 (130-400) 10^3/uL MPV 9.5 (8.0-11.0) fL Immature Gran % 0.1 % Neutrophils % 58.0 % Lymphocytes % 33.8 % Monocytes % 6.9 % Eosinophils % 0.5 % Basophils % 0.7 % Nucleated RBC % 0.0 (0.0-0.3) % Absolute Neutrophils 4.38 (1.2-6.7) 10^3/uL Absolute Lymphocytes 2.55 (1.2-3.4) 10^3/uL Absolute Monocytes 0.52 (0.1-0.8) 10^3/uL Absolute Eosinophils 0.04 (0.0-0.7) 10^3/uL Absolute Basophils 0.05 (0.0-0.2) 10^3/uL D-Dimer 801 H (<500) ng/mlFEU Sodium 134 L (136-145) mmol/L Potassium 3.6 (3.5-5.1) mmol/L Chloride 97 L (98-107) mmol/L Carbon Dioxide 26.5 (21.0-32.0) mmol/L Anion Gap 10.5 (3-11) mmol/L BUN 11 (7-18) mg/dL Creatinine 0.8 (0.55-1.02) mg/dL Est GFR (CKD-EPI 2020) 76.31 (mL/min/1.73m2) Glucose 193 H (74-106) mg/dL Calcium 9.2 (8.5-10.1) mg/dL Magnesium 1.8 (1.8-2.4) mg/dL Total Bilirubin 0.5 (0.2-1.0) mg/dL AST 16 (15-37) U/L ALT 22 (14-59) U/L Alkaline Phosphatase 72 (46-116) U/L Troponin I 8 (<or=51) ng/L NT-Pro-B Natriuret Pep 290 (<300) pg/mL Total Protein 7.3 (6.4-8.2) g/dL Albumin 4.4 (3.4-5.0) g/dL Lipase 35 (<78) U/L TSH COVID-19 Source SARS-CoV-2 (PCR) (Negative) Influenza Type A (PCR) (Negative) Influenza Type B (PCR) (Negative) RSV (PCR) (Negative) Add-On Test Request Intake and Output - 24 Hour Total 05/25/25 18:13 thru 05/26/25 02:15 Intake Total 181.908 Balance 181.908 Weight 58.7 kg Intake: IV 181.908 Falls Risk Assessment History of Falls No History 05/26/25 01:32 Contributing Factors Unstable,Medications 05/26/25 01:32 Ambulatory Aids Independent 05/26/25 01:32 Tubes/Lines With any additional score 05/26/25 01:32 Gait Evaluation No gait disturbance 05/26/25 01:32 Cognition No cognitive impairment 05/26/25 01:32 Fall Total Score 26 05/26/25 01:32 Level of Risk Moderate Risk 05/26/25 01:32 Problems (Last Reviewed 05/26/25 @ 00:31 by Andreas Pro) Chronic hyperglycemia (Chronic) Atypical chest pain (Acute) Hypertensive emergency (Acute) Hyperlipidemia (Chronic) Notes 05/25/25 22:08 Nursing Notes by Salma Bear Nursing Note: report and transfer of care given to Thien Mistry from Xenia Bear RN at this time Initialized on 05/25/25 22:08 - END OF NOTE v v v v v v v v v Sending and/or Receiving Nurses: Please use comment section below to note any information pertinent to the patient hand-off not included above. Information / Comments: Report received from: John Mistry RN
[2025-05-26] MEDS: Acetaminophen 500 MG TAB PO ×2 (02:59→08:58)
[2025-05-26 03:15] LABS: TSH 1.59 uIU/mL (0.36-3.74); Troponin I 10 ng/L (<or=51)
[2025-05-26 06:39] LABS: HCT 34.2 % (36.0-46.0); HGB 11.6 g/dL (11.2-15.7); MCH 30.4 pg (27.0-33.0); MCHC 33.9 % (32.0-36.0); MCV 90 fL (80-95); MPV 9.5 fL (8.0-11.0); Platelet Count 260 10^3/uL (130-400); RBC 3.81 10^6/uL (3.93-5.22); RDW 11.6 % (11.7-14.6); RDW-SD 37.9 fL; WBC 6.87 10^3/uL (4.4-10.8)
[2025-05-26 07:17] LABS: Troponin I 8 ng/L (<or=51)
[2025-05-26 07:19] LABS: ALT 20 U/L (14-59); AST 15 U/L (15-37); Albumin 3.9 g/dL (3.4-5.0); Alkaline Phosphatase 63 U/L (46-116); Anion Gap 7.2 mmol/L (3-11); BUN 9 mg/dL (7-18); Bilirubin, Total 0.5 mg/dL (0.2-1.0); CO2 29.8 mmol/L (21.0-32.0); Calcium 9.0 mg/dL (8.5-10.1); Chloride 101 mmol/L (98-107); Estimated GFR 89.58 (mL/min/1.73m2); Glucose 108 mg/dL (74-106); Potassium 3.5 mmol/L (3.5-5.1); Sodium 138 mmol/L (136-145); Total Protein 6.5 g/dL (6.4-8.2)
[2025-05-26] MEDS: Normal Saline Flush 10 ML SYR IVP (07:58)
[2025-05-26] MEDS: Enoxaparin 40 MG/0.4 ML SYR SC (07:58)
--- NOTE | 2025-05-26 09:01 | INITIAL_ITS ---
Date of service: 05/26/25 Time of Service: 09:01 Care Management Initial Assmt Initial Assessment Reason for Hospitalization: Hypertensive emergency Functional Status/Living Situation Patient Presentation: Agnes was awake and lying in bed when CM met with her. She is pleasant and easy to engage in conversation. Agnes lives in [place], she is active and independent at baseline and works in the [employer] department at [employer]. Agnes enjoys line/lac courte oreilles dancing in her spare time. Her sister lives nearby and is very supportive. Town of Residence: [place] Resides with: Alone Significant Other/Family: Out of area Natural Supports: Daughter/ [facility] lives out of State Sister/alternate [facility] lives nearby and is very supportive Employment Status: Retired Instrumental Activities of Daily Living (ADLs): Independent Medications Medication Management: No Issues/Barriers identified Physical Functioning/Mobility Assistive Device: None Advance Directives Advance Directives: Do you have an Advance Directive: Y , 08:11 AD On File at [facility]: Y 04/11/22, 08:11 Date Asked 05/25/25 05/25/25, 18:14 AD Date Reviewed 05/05/25 05/12/25, 16:22 COLST On File at [facility] COLST Date Scanned Code Status Resuscitation Status Full Code Portal Pt does not currently have a portal and education provided: Yes Insurance Coverage/Financial Issues Insurance: Health Plans ([facility] ONLY!) - [id number] Care Team Visit Care Team Role Provider Type Anthony Zurita MD MD [facility] STAFF PHYSICIAN Melida Brown Primary Care Provider ADV PRACTICE REGISTERED NURSE Ken Samano, Emergency Provider [facility] STAFF PHYSICIAN Andreas Pro Admit Provider NON-[facility] STAFF PHYSICIAN Attending Provider Discharge Potential Discharge Needs: PCP F/U Appt Anticipated Barriers to Discharge: None Identified Patient/Family Education Needs: Review discharge instructions, discuss Ask Me Three Transportation: Private vehicle Plan: Agnes requires close monitoring and further medical work up. [facility] is being consulted, ? transfer. If medically cleared to discharge home, Agnes reports that she can stay with her sister in [place] for a few days if needed. No services are anticipated at this time. CM will continue to follow. Social Determinants of Health Screening Will the Patient Participate in the Screening?: Declined to provide PFSH All Active Problems (Updated 05/26/25 @ 00:41 by Andreas Pro) Chronic hyperglycemia (Chronic) Atypical chest pain (Acute) Angina pectoris, unstable (Acute) Hypertensive emergency (Acute) Visual changes (Acute) Dental infection (Acute) Post-menopausal bleeding (Acute) 07/14/24. EMBx. 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 2010 total chol = 242, TG = 63, HDL =62, LDL = 181. 2013 HDL 50 LDL 171 2018 Total 206. LDL 178. HDL 65 Encounter for colorectal cancer screening (Acute) Medical History (Updated 05/26/25 @ 00:41 by Andreas Pro) Elevated fasting glucose 2013 = 106. 2017 = 106 Actinic keratosis Palpitations (~12/2008) palpitations and syncope - Cardiology evaluation negative Surgical History Ligation of fallopian tube (~1975) Cervical Procedure 1993 cryo Family History Mother Rheumatoid arthritis severe Father Alzheimer's disease Sister Hyperlipidemia Grandmother Heart disease mat aunt Heart disease mat first cousin Personal history of malignant neoplasm Breast CA paternal uncle Alzheimer's disease undiagnosed dementia Brother Melanoma Social History Smoking/Tobacco Use Status: Never Smoking risk assessment performed?: Yes Alcohol Intake: never Drug use: Never Substance use type: does not use Current gender identity: female Special kevon needs: No Do you feel safe at home: Yes Do you feel safe in your relationship?: Yes Female Reproductive History Menstrual Menopause type: natural
--- NOTE | 2025-05-26 09:15 | DI.US_ITS ---
APPROVED REPORT EXAM: Comprehensive 2D, Doppler, and color-flow Echocardiogram Patient Location: Out-Patient Campaign Specialist: Donavan Lin RDCS (AE) Indications: Hypertensive crisis with atypical chest pain Other Information Study Quality: Adequate Conclusion Normal left ventricular wall thickness and chamber size. Ejection fraction is 60 to 65%. Wall motion is normal Normal right ventricular size and function Both atria are normal in size Aortic valve is mildly sclerotic and trileaflet with mild regurgitation. There is no hemodynamically significant aortic stenosis Normal mitral valve with mild regurgitation Normal estimated right ventricular systolic pressure 22 mmHg Wall motion Left Ventricle The left ventricle is normal size. The left ventricular systolic function is normal. The left ventricular ejection fraction is within the normal range. There is normal left ventricular wall thickness. There is normal LV segmental wall motion. There is no ventricular septal defect visualized. LVEF is 60-65%. Right Ventricle The right ventricle is normal size. The right ventricular systolic function is normal. Atria The left atrium size is normal. The right atrium size is normal. The interatrial septum is intact with no evidence for an atrial septal defect. Aortic Valve The aortic valve is mildly sclerotic. Aortic valve is trileaflet. There is no aortic valvular stenosis. Mild aortic regurgitation. Mitral Valve The mitral valve is normal in structure. No evidence of mitral valve stenosis. Mild mitral regurgitation. Tricuspid Valve The tricuspid valve is normal in structure. There is no tricuspid valve stenosis. Trace tricuspid regurgitation. The RVSP is 22.3 mmHg. Pulmonic Valve The pulmonary valve is normal in structure. There is no pulmonic valvular stenosis. There is no pulmonic valvular regurgitation. Great Vessels The aortic root is normal in size. The ascending aorta is mildly dilated. Aortic arch is normal in caliber. IVC is normal in size and collapses >50% with inspiration. Pericardium There is no pericardial effusion. 2D Dimensions IVSD d PLAX 0.90 cm F: 0.6-1.0 Ao Root d 2.62 cm F: 2.7 - 3.3 LVPW d PLAX 0.88 cm F: 0.6 - 1.0 Ao Asc Diam d 3.40 cm F: 2.3 - 3.1 LVID d PLAX 5.40 cm F: 3.8 - 5.2 LVDs 3.57 cm F: 2.2 - 3.5 LV EF Teichholz 62.2 % FS 33.87 % LV EDV (Teich) 141.5 mL LV ESV (Teich) 53.5 mL Stroke Vol Index (Teich) 55.03 M-Mode TAPSE 2.75 cm (M/F) >1.7 Auto EF LV EDV A4C 103.7 mL LV EDV A2C 87.0 mL LV EDV BP LV ESV A4C 41.7 mL LV ESV A2C 34.8 mL LV ESV BP LVEF(%) A4C 59.8 % LVEF(%) A2C 60.0 % LVEF(%) BP LV SV A4C 62.0 ml LV SV A2C 52.2 ml LV SV BP LV CO A4C 4.2 L/min LV CO A2C 3.3 L/min LV CO BP HR A4C 67.92 BPM HR A2C 63.25 BPM LV EDV Index (BP) LA Volume LA Length A4C 4.1 cm LA Length A2C 3.0 cm LA Area A4C s 9.12 cm2 LA Area A2C s 9.02 cm2 LA Vol A4C A-L 17.24 mL LA Vol A2C A-L 22.68 mL LA Vol Biplane A-L 22.9 mL LA Vol/BSA A4C A-L LA Vol/BSA A2C A-L LA Vol/BSA BP A-L 14.3 mL/m2 LA Vol A4C MOD 14.8 mL LA Vol A2C MOD 21.7 mL LA Vol BP MOD 20.7 mL RA Volume RA Area A4C 5.8 cm2 RA ESV A4C (A-L) 7.7mL RA Vol/BSA A4C A-L RA Length A4C 3.7 cm RA ESV A4C (MOD) 7.0mL LV Diastology MV E' medial 0.051 (>0.07 m/s) MV E Vmax 0.64 (0.4-1.3 m/s) MV E/E' MED 12.54 (<14) MV A Vmax 0.95 (0.4-1.3 m/s) MV E' lateral 0.067 (>0.1 m/s) E/A Ratio 0.7 MV E/E' LAT 9.57 (<14) MV E' Average 0.059 m/s MV E/E'(average) 10.86 Aortic Valve AoV Vmax 1.89 m/s LVOT Vmax 1.41 m/s AoV Peak Grad 51.7 mmHg LVOT Peak Grad 7.9 mmHg AoV Area (Vmax) 2.79 cm2 LVOT VTI 0.261 m AoV VTI 0.425 m LVOT Mean Grad 4.5 mmHg AoV Mean Mani. 1.33 m/s LVOT SV 97.86 mL AoV Mean Grad 8.1 mmHg LVOT Diam s 2.15 cm AoV Area (VTI) 2.30 cm2 AV Regurg Peak Gr. 14.35 mmHg Velocity Ratio 0.75 AR Decel [place] 2.3m/sec2 AR DT 2023 msec AR PHT 587 msec AR Vmax 4.72 m/s Mitral Valve MV DT 228 (160-240 msec) Pulmonary Valve RVOT Vmax 0.59 m/s RVOT Peak Gr. 1.4 mmHg RVOT VTI 0.137 m RVOT Mean Gr. 0.9 mmHg Tricuspid Valve RA Pressure 3.00 mmHg TR Vmax 2.20 m/s RVSP (TR) 22.3 mmHg
[2025-05-26] MEDS: Ibuprofen 600 MG TAB PO (13:58)
[2025-05-26] MEDS: Acetaminophen 500 MG TAB 1000 MG PO (15:12)
[2025-05-26] MEDS: amLODIPine 5 MG TAB PO (16:00)
[2025-05-26] MEDS: MORPHine 2 MG/ML SYR 1 MG IVP (18:06)
[2025-05-26] MEDS: Ondansetron O.D.T. 4 MG TABEF PO (18:08)
[2025-05-27] VITALS (16 sets, daily range): BP systolic 106–143; BP diastolic 57–79; PULSE 54–75; RESP 13–28; O2SAT 89–97
[2025-05-27 06:28] LABS: HCT 35.9 % (36.0-46.0); HGB 12.3 g/dL (11.2-15.7); MCH 31.2 pg (27.0-33.0); MCHC 34.3 % (32.0-36.0); MCV 91 fL (80-95); MPV 9.5 fL (8.0-11.0); Platelet Count 248 10^3/uL (130-400); RBC 3.94 10^6/uL (3.93-5.22); RDW 11.4 % (11.7-14.6); RDW-SD 38.5 fL; WBC 6.25 10^3/uL (4.4-10.8)
[2025-05-27 06:49] LABS: ALT 20 U/L (14-59); AST 16 U/L (15-37); Albumin 3.7 g/dL (3.4-5.0); Alkaline Phosphatase 64 U/L (46-116); Anion Gap 5.5 mmol/L (3-11); BUN 9 mg/dL (7-18); Bilirubin, Total 0.5 mg/dL (0.2-1.0); CO2 30.5 mmol/L (21.0-32.0); Calcium 8.9 mg/dL (8.5-10.1); Chloride 99 mmol/L (98-107); Estimated GFR 89.58 (mL/min/1.73m2); Glucose 108 mg/dL (74-106); Potassium 4.2 mmol/L (3.5-5.1); Sodium 135 mmol/L (136-145); Total Protein 6.5 g/dL (6.4-8.2)
[2025-05-27] MEDS: Normal Saline Flush 10 ML SYR IVP (07:49)
--- NOTE | 2025-05-27 08:06 | DSE_ITS ---
Date of service: 05/27/25 Time of Service: 08:06 DS: Diagnosis Discharge Diagnosis (1) Hypertensive emergency: Status: Acute (2) Atypical chest pain: Status: Acute (3) Abscess, dental: Status: Resolved (4) Hyperlipidemia: Status: Chronic (5) Chronic hyperglycemia: Status: Chronic Discharge Plan Disposition Patient Disposition: Home Condition: Good Discharge Details Reason For Visit: Hypertensive emergency, Atypical chest pain Admit Date/Time: 05/26/25 00:52 Admit Provider: Andreas Pro Attending Provider: Andreas Pro Primary Care Provider: Melida Brown [facility] Hospital Course: 75 yo F with history of mild hypertension that was recently escalating in the setting of a dental abscess who presented with severe hypertension >200/100 and chest pain. Her pain and blood pressure improved with SL nitroglycerine. Her EKG was reassuring and her troponins were negative. She was placed on nitroglycerine drip and admitted to the ICU. Her chest pain resolved and her blood pressure normalized. She had an echocardiogram that showed normal LV wall motion and LVEF of 60-65%. She was given amlodipine 5mg, which she tolerated well, and the nitroglycerine drip was stopped. Her blood pressure remained stable and she was chest pain free overnight. She was discharged on 5mg amlodipine at HS. She was counseled to monitor her blood pressure as the amlodipine comes to steady state in the next 1-2 weeks. PCP follow up: 1-2 week follow up. Monitor blood pressure and assess need for continuation of amlodipine and dose after her dental procedure. Home Meds and New Rx's Prescriptions: New amlodipine 5 mg Tablet 5 mg PO HS Qty: 30 2RF Continued acetaminophen [Tylenol Extra Strength] 500 mg tablet 500 mg PO Q6H PRN Patient Comments: takes one to two tabs as needed Wendy/cinnamon 0.5 tsp PO DAILY Patient Comments: 1/2 teaspoon each ascorbate calcium (vitamin C) 500 mg tablet 1 gm PO DAILY magnesium glycinate 118 mg magnesium capsule 360 mg PO DAILY Discontinued amoxicillin-pot clavulanate 875-125 mg tablet 1 tab PO BID Patient Comments: TAKE ONE TABLET BY MOUTH TWICE DAILY Discharge Instructions Instructions: High blood pressure emergencies Activity:: Activity as Tolerated Equipment/Supplies:: No Equipment Needed Diet:: Low Sodium Discharge Orders Discharge Orders: Discharge Order (Routine); Ordered 05/27/25 Ordered By: Goran Dudley Discharge Data Discharge Date/Time-TO BE ENTERED AT DEPARTURE: 05/27/25 09:54 DS: Summary Time Spent with Patient providing and/or coordinating discharge services: Greater than 30 minutes Status at Discharge Functional status at discharge: independent ambulation Overall status at discharge: patient is back to baseline Mental Status: mental status grossly normal Speech and Movement: speech and movement normal Mood: congruent mood Affect: normal affect Exam Narrative Exam Narrative: General: Patient appears appropriate for age, alert and oriented x 3 and in no acute distress. HEENT: no overt mouth/neck swelling Lungs: CTAB, normal effort Heart: Regular rate and rhythm with no murmur gallops or rubs. Abdomen: +BS, soft, NT/ND Extremities: Without clubbing, cyanosis or pitting edema. Good capillary re fill. Psych Mental Status: mental status grossly normal Speech and Movement: speech and movement normal Mood: congruent mood Affect: normal affect DS: Data Vitals/I&O Vitals and I&O: Vital Signs Temperature 36.0 C L 05/26/25 18:31 Temperature Source Temporal Artery Scan 05/26/25 18:56 Pulse 58 L 05/27/25 07:01 Pulse 58 L 05/27/25 07:01 Respiratory Rate 15 05/27/25 07:01 Respiratory Effort Normal 05/26/25 01:32 Respiratory Depth Normal 05/26/25 01:32 Respiratory Pattern Normal 05/26/25 01:32 Blood Pressure 126/64 05/27/25 07:01 Blood Pressure Mean 83 05/27/25 07:01 Blood Pressure Position Sitting 05/25/25 18:14 Pulse Oximetry 92 05/27/25 07:01 Oxygen Delivery Method Room Air 05/26/25 18:56 Oxygen Flow Rate 0 05/26/25 18:56 Pain Level 0 05/26/25 19:06 Intake & Output 05/26/25 05/26/25 05/27/25 11:59 23:59 11:59 Intake Total 286.175 / 466.305 180.13 / 466.305 Output Total 400 / 1175 775 / 1175 625 / 625 Balance -113.825 / -708.695 -594.87 / -708.695 -625 / -625 Weight 58.2 kg Intake: IV 36.175 / 96.305 60.13 / 96.305 Oral 250 / 370 120 / 370 Output: Urine 400 / 1175 775 / 1175 625 / 625 Other: Urine Color Yellow Straw Yellow Urine Appearance Clear Clear Clear Urine Odor None Normal Normal Comment unmeasured, mixed with stool, small amount mixed with stool Stool Size Small Small Stool Characteristics Formed Soft Brown Brown Data Completed and Pending Labs on day of discharge: Labs from last 24 hours 05/27/25 05:55 WBC 6.25 RBC 3.94 Hgb 12.3 Hct 35.9 L MCV 91 MCH 31.2 MCHC 34.3 RDW 11.4 L Plt Count 248 MPV 9.5 Sodium 135 L Potassium 4.2 Chloride 99 Carbon Dioxide 30.5 Anion Gap 5.5 BUN 9 Creatinine 0.7 Est GFR (CKD-EPI 2020) 89.58 Glucose 108 H Calcium 8.9 Total Bilirubin 0.5 AST 16 ALT 20 Alkaline Phosphatase 64 Total Protein 6.5 Albumin 3.7 PFSH All Active Problems (Updated 05/26/25 @ 00:41 by Andreas Pro) Chronic hyperglycemia (Chronic) Atypical chest pain (Acute) Angina pectoris, unstable (Acute) Hypertensive emergency (Acute) Visual changes (Acute) Dental infection (Acute) Post-menopausal bleeding (Acute) 07/14/24. EMBx. 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 2010 total chol = 242, TG = 63, HDL =62, LDL = 181. 2013 HDL 50 LDL 171 2017 Total 206. LDL 178. HDL 65 Encounter for colorectal cancer screening (Acute) Medical History (Updated 05/26/25 @ 00:41 by Andreas Pro) Elevated fasting glucose 2013 = 106. 2017 = 106 Actinic keratosis Palpitations (~12/2008) palpitations and syncope - Cardiology evaluation negative Surgical History Ligation of fallopian tube (~1975) Cervical Procedure 1993 cryo Family History Mother Rheumatoid arthritis severe Father Alzheimer's disease Sister Hyperlipidemia Grandmother Heart disease mat aunt Heart disease mat first cousin Personal history of malignant neoplasm Breast CA paternal uncle Alzheimer's disease undiagnosed dementia Brother Melanoma Social History Smoking/Tobacco Use Status: Never Smoking risk assessment performed?: Yes Alcohol Intake: never Drug use: Never Substance use type: does not use Current gender identity: female Special kevon needs: No Do you feel safe at home: Yes Do you feel safe in your relationship?: Yes Female Reproductive History Menstrual Menopause type: natural Time Spent with Patient Time Spent with Patient: <45 minutes Time was spent: preparing to see the patient(eg.review tests), obtaining and/or reviewing separately otained hiistory, ordering medications,tests, procedures, referring, communicating with other health care support representative, indepentently interpreting results, counseling the patient and care coordination
--- NOTE | 2025-05-27 08:37 | PDOC.CMDIS ---
Date of service: 05/27/25 Time of Service: 08:37 LACE Index Scoring Tool Questions: Length of Stay (in days): 1 Was the patient admitted via the E.D.?: Yes E.D. Visits: 3 Answers: Total Score: 7 Risk of Readmission: Low Risk Care Management Discharge Plan Reason for Hospitalization: Chest pain, HTN Emergency Discharge Plan: Agnes is discharged home via private vehicle with family. Pt will follow up with her PCP and discharge plan of care as directed. No new services are ordered before discharge. Patient/Family Education Needs: Review discharge instructions and plan for outpatient follow-up. Discuss ask me three.
== END 2025-05-27 09:54 | disposition home or self-care (01) ==
LOC: ER 05-26 01:08 → ICU 05-26 01:35
PROVIDERS: Emergency Medicine; Admitting Provider Family Medicine; Emergency Provider Student in an Organized Health Care Education/Training Program; PCP Nurse Practitioner Family; Responsible Provider Family Medicine; Visit Provider Family Medicine
DX: I16.1 Hypertensive emergency (principal); R07.89 Other chest pain; I10 Essential (primary) hypertension; K04.7 Periapical abscess without sinus; E78.5 Hyperlipidemia, unspecified; R73.9 Hyperglycemia, unspecified; N95.0 Postmenopausal bleeding; K62.89 Other specified diseases of anus and rectum; R35.0 Frequency of micturition; K76.89 Other specified diseases of liver; M51.16 Intervertebral disc disorders with radiculopathy, lumbar region; Z79.899 Other long term (current) drug therapy
CPT/HCPCS: 00123; 36415; 80053; 83690; 85027; 87637; 93005; 96365; 96366; 96367; 96368; 96372; 96375; 96376; 99291; J1650; 71046; 83735; 83880; 84443; 84484; 85025; 85379; 93010; 93306; 99223; 99239; G0378; J0131; J1920; J2270; J2305; J2404

== ENCOUNTER 2025-05-29 08:06 | Emergency (ER) | payer OTHER, SELFPAY ==
[2025-05-29] VITALS (18 sets, daily range): BP systolic 121–145; BP diastolic 65–87; PULSE 66–80; RESP 10–20; TEMP 36.8; O2SAT 94–97
--- NOTE | 2025-05-29 08:00 | RT.EKG_ITS ---
APPROVED REPORT Exam: Resting ECG Reason for Exam: chest pain Patient Location: E HR:80 bpm ECG Measurements Heart Rate 80 AXIS OR 156 P 61 QRSd 82 QRS -30 QT 360 T 82 QTc 415 Conclusion Sinus rhythm...normal P axis, V-rate 60- 99 Probable left atrial enlargement...P >50mS, <-0.10mV V1 Left axis deviation...QRS axis (-30,-90)
--- NOTE | 2025-05-29 08:15 | DI.RAD_ITS ---
Exam(s) XR CHEST 2V PA LATERAL EXAM: XR CHEST 2V PA LATERAL CLINICAL HISTORY: chest pressure. TECHNIQUE: 2D digital imaging was performed. COMPARISON: CR,XR XR CHEST 2V PA LATERAL from 05/25/2025 FINDINGS: 2 views: Heart size is normal. The mediastinum is not widened. Lungs are clear. No infiltrates nor pleural effusions. Pectus excavatum again noted IMPRESSION: No acute pulmonary findings. DATA REPOSITORY: RADIATION DOSE DELIVERED:
--- NOTE | 2025-05-29 08:22 | W.ED.GENAD ---
Discharge Plan Disposition Patient Disposition: Home Condition: Stable Discharge Details Clinical Impression: Hypertension Primary Care Provider: Melida Brown ED Provider: Ken Barbour Home Meds and New Rx's Prescriptions: Continued acetaminophen [Tylenol Extra Strength] 500 mg tablet 500 mg PO Q6H PRN Patient Comments: takes one to two tabs as needed Wendy/cinnamon 0.5 tsp PO DAILY Patient Comments: 1/2 teaspoon each ascorbate calcium (vitamin C) 500 mg tablet 1 gm PO DAILY magnesium glycinate 118 mg magnesium capsule 360 mg PO DAILY amlodipine 5 mg Tablet 5 mg PO HS Qty: 30 2RF Discharge Instructions Instructions: High Blood Pressure ED, DASH diet Additional Instructions: You were seen in the emergency department for your hypertension, you were recently started on amlodipine, your blood pressure was 138/71 on arrival, there are no emergent concerns with this level of hypertension, your laboratory workup shows no damage to the kidneys or heart, blood pressure can take a number of days to weeks to get control of, you need to follow-up with your primary care provider for possible medication changes, try not to take your blood pressure every hour or 2 like you have been and just keep track of it once or twice per day, make sure that you are sitting for at least 5 entire minutes before you take your blood pressure. Warning symptoms of hypertensive emergency include sudden severe headache, floaters in your vision -and chest pain, the chest pain you are experiencing is tender to touch and is unlikely related to your heart and your cardiac workup was negative today. Do not hesitate to return for any emergent concerns. Referrals: Melida Brown [Primary Care Provider, Medicine] Discharge Data Discharge Date/Time-TO BE ENTERED AT DEPARTURE: 05/29/25 10:14 [facility] General Date/Time Provider Initiated Documentation: 05/29/25 08:21. HPI Narrative: 75 year-old female presents to ED today by EMS with a chief complaint of hypertension- recently was admitted here at [facility] for hypertensive emergency- now checking BPs every 2 hours at home, and concerned for 160s/100, asymptomatic with onset since discharge. Patient was started on 5mg amlodipine, has history of failing lisinopril due to dry cough. Quality described as some L sided chest tenderness, no radiation to crushing chest pain, visual changes/floaters, headaches, nausea, flank pain, urinary retention. Severity is described as mild. Palliating factors include took amlodipine last night. Provoking factors include nothing specific. Patient not anticoagulated. Related Data Home Medications ?Medication ?Instructions ?Recorded ?Confirmed ascorbate calcium (vitamin C) 500 1 gm PO DAILY 05/17/20 05/29/25 mg tablet Wendy/cinnamon 0.5 tsp PO DAILY 10/07/22 05/29/25 acetaminophen 500 mg tablet 500 mg PO Q6H PRN 06/16/24 05/29/25 (Tylenol Extra Strength) magnesium glycinate 360 mg PO DAILY 04/29/25 05/29/25 amlodipine 5 mg tablet 5 mg PO HS #30 tabs 05/27/25 05/29/25 Previous Rx's ?Medication ?Instructions ?Recorded amlodipine 5 mg tablet 5 mg PO HS #30 tabs 05/27/25 Allergies Allergy/AdvReac Type Severity Reaction Status Date / Time lisinopril Allergy Intermediate Other (See Verified 05/29/25 08:14 Comment) polyethylene glycol AdvReac Intermediate localized Verified 05/29/25 08:14 swelling. numbness/tingling hydrochlorothiazide AdvReac Other (See Verified 05/29/25 08:14 Comment) General Stated Complaint: [facility] ARLENE: 3 Review of Systems All systems reviewed & are unremarkable except as noted in HPI and below Exam Narrative Exam Narrative: GENERAL APPEARANCE: Well-nourished, non-toxic, awake and alert, atraumatic, no acute distress. SKIN: Warm, pink, dry, intact, without rashes/lesions/ulcerations. HEAD: Normocephalic, atraumatic, normal hair distribution for gender/age. EYES: Normal conjunctiva, no exudates on lids/lashes, EOMs intact without nystagmus, vision grossly intact ENT: Nares patent, no circumoral cyanosis, no facial swelling NECK: Supple, trachea midline, painless cervical ROM. LUNGS/CHEST: Lungs CTA bilaterally- no rhonchi/rales/wheezes diffusely, non-labored respirations, normal A/P diameter, symmetrical expansion, no chest wall deformity HEART (CV/PV): Regular rate and rhythm without murmur, no peripheral edema, no JVD. ABDOMEN: Soft, non-distended, no guarding, no CVA tenderness bilaterally. MSK: Normal ROM, no swelling/deformity to bilateral UEs or LEs, moving all extremities without weakness, no cyanosis, spine midline without tenderness, normal curvature. NEURO: Mental Status AAOx4 - alert to person, place, time, events No facial droop, no forehead involvement. Motor: No focal weakness - strength 5/5 in bilateral UEs and LEs, proximal and distal, symmetric. Sensory: sensation intact to light touch globally. Gait normal: patient ambulated without ataxia into ED room. PSYCH: euthymic, cooperative, pleasant, appropriate speech Course Vital Signs Vital signs: Vital Signs Temperature 36.8 C 05/29/25 08:04 Pulse 78 05/29/25 08:04 Respiratory Rate 18 05/29/25 08:04 Blood Pressure 138/71 05/29/25 08:04 Pulse Oximetry 95 05/29/25 08:04 Temperature 36.8 C 05/29/25 08:15 Temperature Source Oral 05/29/25 08:15 Pulse 78 05/29/25 08:15 Respiratory Rate 16 05/29/25 08:15 Respiratory Effort Normal, Non-Labored 05/29/25 08:15 Respiratory Depth Normal 05/29/25 08:15 Respiratory Pattern Normal 05/29/25 08:15 Blood Pressure 138/71 05/29/25 08:15 Blood Pressure Position Sitting 05/29/25 08:15 Pulse Oximetry 95 05/29/25 08:15 Oxygen Delivery Method Room Air 05/29/25 08:15 Oxygen Flow Rate 0 05/29/25 08:15 Pain Level 0 05/29/25 08:15 Medical Decision Making This dictation utilizes [id number] dictation software and may contain unedited grammatical errors. 75 year-old female presents to ED today by EMS with a chief complaint of hypertension- recently was admitted here at [facility] for hypertensive emergency- now checking BPs every 2 hours at home, and concerned for 160s/100, asymptomatic with onset since discharge. Patient was started on 5mg amlodipine, has history of failing lisinopril due to dry cough. Quality described as some L sided chest tenderness, no radiation to crushing chest pain, visual changes/floaters, headaches, nausea, flank pain, urinary retention. Severity is described as mild. Palliating factors include took amlodipine last night. Provoking factors include nothing specific. Patients' medical history: hypertension, angina, hyperlipidemia, ongoing dental infection. Family and social history: FHx of aortic aneurysm, denies ETOH/drug use, eats healthy diet. Pertinent exam findings / vital signs include vision grossly intact, neuro intact, benign cardiopulmonary exam, mild tenderness to L axillary intercostals in mid-ribs. Differential / pathologies of concern include hypertension, anxiety, not hypertensive emergency. Diagnostic studies of: -CBC, CMP, troponin, TSH, urinalysis, EKG, chest x-ray. - CBC unremarkable - CMP shows no WILLIAMS, no actionable abnormality - Trop I negative with reliable onset - TSH WNL - UA shows no proteinuria - XR Chest negative - EKG shows NSR, no heart block, no ischemic changes - repeated when she reported some discomfort at 0937 and no dynamic changes Interventions of: -None. ED Course/Assessment/Plan: 75-year-old female presents with concern over high blood pressure readings at home 160/100, was recently discharged after an admission for hypertensive emergency and started on amlodipine, she is checking her blood pressure every 2 hours, I think there is an element of anxiety contributing to this and her workup shows no sign of endorgan damage, she has no clear symptoms of hypertensive emergency and her blood pressure is 138/71 here. I counseled her on trying to cut back on the amount of time she is taking her blood pressure but record her journal each day of her blood pressure after being seated and still for 5 entire minutes. Counseled her to follow-up by phone with her primary care provider for any needed adjustments to her amlodipine and return for any symptoms like visual changes, severe sudden onset headache, flank pain, urinary retention, hematuria, increasing chest pain. Findings not consistent with symptomatic hypertension, end-organ damage, consider costochondritis vs anxiety for patients mild chest discomfort with negative trop/EKG. Disposition of Hypertension. Patient verbalized understanding of the plan and return to ED criteria and engaged in shared decision making. Medical Records Medical records reviewed: Yes I reviewed the patient's medical records. Imaging Data Radiologic Study: Attestation: I personally reviewed and interpreted this imaging study as follows: Imaging: X-Ray Radiologist's impression: EXAM: XR CHEST 2V PA LATERAL CLINICAL HISTORY: chest pressure. TECHNIQUE: 2D digital imaging was performed. COMPARISON: CR,XR XR CHEST 2V PA LATERAL from 05/25/2025 FINDINGS: 2 views: Heart size is normal. The mediastinum is not widened. Lungs are clear. No infiltrates nor pleural effusions. Pectus excavatum again noted IMPRESSION: No acute pulmonary findings. Lab Data Lab results reviewed: Yes I reviewed the patient's lab results. Labs: Laboratory Tests Range/Units 05/29/25 05/29/25 08:15 08:37 WBC (4.4-10.8) 10^3/uL 5.34 RBC (3.93-5.22) 10^6/uL 4.43 Hgb (11.2-15.7) g/dL 13.7 Hct (36.0-46.0) % 40.3 MCV (80-95) fL 91 MCH (27.0-33.0) pg 30.9 MCHC (32.0-36.0) % 34.0 RDW (11.7-14.6) % 11.5 L Plt Count (130-400) 10^3/uL 310 MPV (8.0-11.0) fL 9.5 Immature Gran % % 0.2 Neutrophils % % 56.2 Lymphocytes % % 33.1 Monocytes % % 7.3 Eosinophils % % 1.9 Basophils % % 1.3 Nucleated RBC % (0.0-0.3) % 0.0 Absolute Neutrophils (1.2-6.7) 10^3/uL 3.00 Absolute Lymphocytes (1.2-3.4) 10^3/uL 1.77 Absolute Monocytes (0.1-0.8) 10^3/uL 0.39 Absolute Eosinophils (0.0-0.7) 10^3/uL 0.10 Absolute Basophils (0.0-0.2) 10^3/uL 0.07 Sodium (136-145) mmol/L 136 Potassium (3.5-5.1) mmol/L 4.0 Chloride (98-107) mmol/L 99 Carbon Dioxide (21.0-32.0) mmol/L 29.5 Anion Gap (3-11) mmol/L 7.5 BUN (7-18) mg/dL 10 Creatinine (0.55-1.02) mg/dL 0.7 Est GFR (CKD-EPI 2020) (mL/min/1.73m2) 89.58 Glucose (74-106) mg/dL 133 H Calcium (8.5-10.1) mg/dL 9.0 Total Bilirubin (0.2-1.0) mg/dL 0.5 AST (15-37) U/L 18 ALT (14-59) U/L 27 Alkaline Phosphatase (46-116) U/L 74 Troponin I (<or=51) ng/L 7 Total Protein (6.4-8.2) g/dL 7.4 Albumin (3.4-5.0) g/dL 4.3 TSH (0.36-3.74) uIU/mL 1.48 Urine Color (Yellow) Yellow Urine Clarity (Clear) Clear Urine pH (5-8) 6.0 Ur Specific [place] (1.005-1.025) 1.015 Urine Protein (Neg-Trace) mg/dL Negative Urine Ketones (Negative) mg/dL Negative Urine Blood (Negative) Trace-intact H Urine Nitrite (Negative) Negative Urine Bilirubin (Negative) Negative Urine Urobilinogen (Up to 0.2) mg/dL 0.2 Ur Leukocyte Esterase (Negative) Negative Urine RBC (0-2) HPF 0-2 Urine WBC (0-5) HPF Negative Ur Epithelial Cells (Negative) HPF Rare Urine Crystals (Negative) HPF Negative Urine Bacteria (Negative) HPF Negative Urine Casts (Negative) LPF Negative Urine Mucus (Negative) Trace Ur Culture Indicated? No Urine Glucose (Negative) mg/dL Negative PFSH All Active Problems (Updated 05/29/25 @ 09:57 by DAISY Talavera) Hypertension (Chronic) Angina pectoris, unstable (Acute) Visual changes (Acute) Dental infection (Acute) Post-menopausal bleeding (Acute) 07/14/24. EMBx. 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 2010 total chol = 242, TG = 63, HDL =62, LDL = 181. 2013 HDL 50 LDL 171 2018 Total 206. LDL 178. HDL 65 Encounter for colorectal cancer screening (Acute) Medical History (Updated 05/29/25 @ 09:57 by DAISY Talavera) Elevated fasting glucose 2013 = 106. 2018 = 106 Actinic keratosis Palpitations (~12/2008) palpitations and syncope - Cardiology evaluation negative Surgical History Ligation of fallopian tube (~1975) Cervical Procedure 1993 cryo Family History Mother Rheumatoid arthritis severe Father Alzheimer's disease Sister Hyperlipidemia Grandmother Heart disease mat aunt Heart disease mat first cousin Personal history of malignant neoplasm Breast CA paternal uncle Alzheimer's disease undiagnosed dementia Brother Melanoma Social History Smoking/Tobacco Use Status: Never Smoking risk assessment performed?: Yes Alcohol Intake: never Drug use: Never Substance use type: does not use Current gender identity: female Special kevon needs: No Do you feel safe at home: Yes Do you feel safe in your relationship?: Yes Female Reproductive History Menstrual Menopause type: natural
[2025-05-29 08:51] LABS: Glucose Negative (Negative)
[2025-05-29 09:01] LABS: C & S Indicated? No; RBC 0-2 HPF (0-2); WBC Negative HPF (0-5)
[2025-05-29 09:09] LABS: ALT 27 U/L (14-59); AST 18 U/L (15-37); Albumin 4.3 g/dL (3.4-5.0); Alkaline Phosphatase 74 U/L (46-116); Anion Gap 7.5 mmol/L (3-11); BUN 10 mg/dL (7-18); Bilirubin, Total 0.5 mg/dL (0.2-1.0); CO2 29.5 mmol/L (21.0-32.0); Calcium 9.0 mg/dL (8.5-10.1); Chloride 99 mmol/L (98-107); Estimated GFR 89.58 (mL/min/1.73m2); Glucose 133 mg/dL (74-106); Potassium 4.0 mmol/L (3.5-5.1); Sodium 136 mmol/L (136-145); TSH (W/Ref FT4) 1.48 uIU/mL (0.36-3.74); Total Protein 7.4 g/dL (6.4-8.2); Troponin I 7 ng/L (<or=51)
--- NOTE | 2025-05-29 09:30 | RT.EKG_ITS ---
APPROVED REPORT Exam: Resting ECG Reason for Exam: Patient Location: E HR:65 bpm ECG Measurements Heart Rate 65 AXIS AL 157 P 26 QRSd 85 QRS -29 QT 400 T 63 QTc 417 Conclusion Sinus rhythm...normal P axis, V-rate 60- 99 Inferior infarct, old...Q >35mS, II III aVF Anterior infarct, old...Q >40mS, abnormal ST-T, V2-V5
[2025-05-29 09:34] LABS: Abs Immature Grans 0.01 10^3/uL (0.0-0.06); HCT 40.3 % (36.0-46.0); HGB 13.7 g/dL (11.2-15.7); Immature Grans % 0.2 %; MCH 30.9 pg (27.0-33.0); MCHC 34.0 % (32.0-36.0); MCV 91 fL (80-95); MPV 9.5 fL (8.0-11.0); Platelet Count 310 10^3/uL (130-400); RBC 4.43 10^6/uL (3.93-5.22); RDW 11.5 % (11.7-14.6); RDW-SD 38.5 fL; WBC 5.34 10^3/uL (4.4-10.8)
== END 2025-05-29 10:14 | disposition home or self-care (01) ==
PROVIDERS: Emergency Provider Physician Assistant; PCP Nurse Practitioner Family
DX: R07.89 Other chest pain (principal); I10 Essential (primary) hypertension; E78.5 Hyperlipidemia, unspecified
CPT/HCPCS: 36415; 80053; 93005; 99285; 71046; 81003; 81015; 84443; 84484; 85025; 93010; 99284

== ENCOUNTER 2025-06-07 13:18 | Outpatient (REF) | payer OTHER, SELFPAY | END 2025-06-07 13:19 | disposition home or self-care (01) | LOC: LBN 13:18 | PROVIDERS: PCP Nurse Practitioner Family; Visit Provider Obstetrics & Gynecology | DX: R10.9 Unspecified abdominal pain (principal) | CPT/HCPCS: 87086 ==

== ENCOUNTER 2025-06-20 01:33 | Outpatient (CLI) | payer OTHER, SELFPAY ==
--- NOTE | 2025-06-20 | DI.CT_ITS ---
Exam(s) CT ABDOMEN PELVIS W EXAM: CT ABDOMEN PELVIS W CLINICAL HISTORY: RT UPPER QUAD ABD PAIN, R10.11. TECHNIQUE: Imaging Protocol: Axial computed tomography images with coronal and sagittal reformatted images were created and reviewed CONTRAST MATERIAL: Intravenous: Omnipaque-350 75cc Oral: Yes. Oral contrast was also administered for bowel opacification. COMPARISON: CT CT ABDOMEN W from 10/25/2024 FINDINGS: VISUALIZED LUNG BASES: No nodules nor pleural effusions evident. ABDOMEN: There is no ascites. LIVER: There are numerous benign-appearing cysts in both hepatic lobes again evident. These appear similar in size and number when compared to 10/25/2024. None of these exhibit intracystic hemorrhage nor mural masses nor thick septations therein. There are no new solid lesions seen in the liver. There are no dilated intrahepatic ducts. GALLBLADDER/BILIARY: There are no gallstones evident. However, gallbladder is moderately distended and the gallbladder wall exhibits thin uniform enhancement. There is no pericholecystic fluid. The CBD diameter is upper normal-minimally prominent. There are no radiopaque calculi seen in CBD and no pancreatic head mass. PANCREAS: No evidence of pancreatic mass nor dilatation of the pancreatic duct. SPLEEN: Spleen is not enlarged. No obvious intrasplenic lesions. Splenic and portal veins are patent. ADRENALS: There are no significant adrenal masses. KIDNEYS:No cysts evident. No solid renal masses. No calculi nor hydronephrosis.. ABDOMINAL AORTA: There is a fusiform infrarenal abdominal aortic aneurysm. Maximum external diameter is 2.5 cm. Above this level the abdominal aorta measures 1.8 cm. The common iliac arteries exhibit upper normal diameters. LYMPH NODES:There is no retroperitoneal nor paraaortic adenopathy. ABDOMINAL WALL: No evidence of significant anterior abdominal wall nor inguinal hernia. GI: The oral contrast has reached the left side of the colon by the time of image acquisition. There is no evidence of small-bowel obstruction. The colon diameters slightly prominent but this appears to be related to an element of constipation. There is no obvious colitis pattern. No significant diverticular disease. PELVIS: GI: No evidence of appendicitis.No significant sigmoid diverticular disease. LYMPH NODES: There is no intrapelvic nor inguinal adenopathy. REPRODUCTIVE: Uterus size normal. In no adnexal masses. However, there are dilated veins on both sides the uterus which drain into gonadal veins which do not appear thrombosed. The right gonadal vein drains into the patent IVC and the left gonadal vein drains into the patent pre aortic left renal vein these findings are consistent with an element of pelvic congestion syndrome. There is no free fluid in the pelvis. URINARY BLADDER: No calculi nor obvious masses evident OSSEOUS: There is mild compression fracture at superior endplate of L1 which appears unchanged from CT scan of October 2024. There is also again noted advanced disc space narrowing at L5-S1 level and mild degenerative anterolisthesis of L4 upon L5, also unchanged. IMPRESSION: 1. Multiple stable benign-appearing cysts in the liver again noted. No new solid lesions in the liver. 2. There are no obvious gallstones seen on CT scan. However, the gallbladder wall does enhance uniformly and the gallbladder is slightly distended. Recommend follow-up ultrasound. In addition, there is slight prominence of the CBD diameter. There are no dilated intrahepatic ducts. Recommend follow-up right upper quadrant ultrasound. 3. There is a mild fusiform infrarenal abdominal aortic aneurysm which exhibits a maximum external diameter of 2.5 cm. The abdominal aorta diameter above this level is 1.8 cm. There is no aneurysmal dilatation of the iliac arteries. 4. There are dilated veins on both sides of the uterus which drain into patent slightly prominent bilateral gonadal veins. This finding is consistent with an element of pelvic congestion syndrome. There are no abnormal adnexal masses and there is no free fluid in the pelvis. RADIATION DOSE DELIVERED: 367.29mGy.cm Total DLP DATA REPOSITORY: All CT scans at this facility are submitted to the National Radiology Data Registry (NRDR) Dose Index Registry (DIR) with the [employer] ([employer]). RADIATION OPTIMIZATION: All CT scans at this facility use at least one of these dose optimization techniques: automated exposure control; mA and/or kV adjustment per patient size (includes targeted exams where dose is matched to clinical indication); or iterative reconstruction.
[2025-06-20] MEDS: Barium Sulfate 2% W/V-Berry Smoothie 450 ML BTL PO (08:21)
[2025-06-20] MEDS: Barium Sulfate 2% W/V-Creamy Vanilla Smoothie 450 ML BTL PO (08:22)
[2025-06-20] MEDS: Normal Saline Flush 10 ML SYR IVP (10:00)
[2025-06-20] MEDS: Normal Saline - Diluent 50 ML VIAL IJ (10:00)
[2025-06-20] MEDS: Omnipaque 350 MG/ML 500 ML BTL-Imaging package IJ (10:01)
== END 2025-06-20 01:53 ==
LOC: DI 01:33
PROVIDERS: PCP Nurse Practitioner Family; Visit Provider Nurse Practitioner Family
DX: R10.11 Right upper quadrant pain (principal); K76.0 Fatty (change of) liver, not elsewhere classified; I71.43 Infrarenal abdominal aortic aneurysm, without rupture
CPT/HCPCS: 74177

== ENCOUNTER 2025-06-29 13:29 | Outpatient (CLI) | payer OTHER, SELFPAY ==
--- NOTE | 2025-06-29 | DI.RAD_ITS ---
Exam(s) XR CHEST 2V PA LATERAL EXAM: XR CHEST 2V PA LATERAL CLINICAL HISTORY: ODYNOPHAGIA,R13.10,DYSPHAGIA,? FOREIGN BODY ESOPHAGUS TECHNIQUE: 2D digital imaging was performed of the chest. Two images were obtained. PA and lateral views were obtained. COMPARISON: CR XR CHEST 2V PA LATERAL from 05/29/2025 FINDINGS: MEDIASTINUM: Normal. HEART: Normal. PULMONARY VASCULATURE: Normal. LUNGS: Clear. PLEURAL SPACE: No pleural effusion or pneumothorax. BONE:Within normal limits for the patient's age. There is a pectus excavatum deformity. OTHER FINDINGS:No radiopaque foreign bodies are seen in the airway. IMPRESSION: No acute pulmonary findings. DATA REPOSITORY: RADIATION DOSE DELIVERED:
== END 2025-06-29 13:49 ==
LOC: DI 13:30
PROVIDERS: PCP Nurse Practitioner Family; Visit Provider Family Medicine
DX: R13.10 Dysphagia, unspecified (principal)
CPT/HCPCS: 71046

== ENCOUNTER 2025-09-21 12:58 | Emergency (ER) | payer OTHER, SELFPAY ==
[2025-09-21 13:01] VITALS: BP 168/91; PULSE 95; RESP 16; TEMP 36.5; O2SAT 98
--- NOTE | 2025-09-21 13:45 | RT.EKG_ITS ---
APPROVED REPORT Exam: Resting ECG Reason for Exam: visual loss Patient Location: E HR:65 bpm ECG Measurements Heart Rate 65 AXIS FL 149 P 50 QRSd 97 QRS 88 QT 406 T 19 QTc 422 Conclusion Sinus rhythm...normal P axis, V-rate 60- 99 Ventricular premature complex...V complex w/ short R-R interval Anteroseptal infarct, old...Q >40mS, V1-V2 Nonspecific T abnormalities, lateral leads...T <-0.10mV, I aVL V5 V6
--- NOTE | 2025-09-21 13:46 | W.ED.GENAD ---
Discharge Plan Disposition Patient Disposition: Home Condition: Stable Discharge Details Clinical Impression: Right leg weakness, Keratitis, Leg pain, right Primary Care Provider: Melida Brown ED Provider: Ru Syed Home Meds and New Rx's Prescriptions: Continued acetaminophen [Tylenol Extra Strength] 500 mg tablet 500 mg PO Q6H PRN Patient Comments: takes one to two tabs as needed Wendy/cinnamon 0.5 tsp PO DAILY Patient Comments: 1/2 teaspoon each ascorbate calcium (vitamin C) 500 mg tablet 1 gm PO DAILY magnesium glycinate 118 mg magnesium capsule 360 mg PO DAILY Discharge Instructions Additional Instructions: Regarding your blurred vision, please follow-up with [facility]. They have an appointment today to see you in clinic today at 4 PM.. Regarding your knee discomfort and intermittent weakness, please follow-up with orthopedics. Please follow-up with your primary care physician. Call today to schedule timely follow-up. Your blood pressure was elevated today at 168/91. Please be sure to discuss this with your doctor. Additional outpatient diagnostic testing and treatment may be necessary should this remain elevated. Your glucose was elevated today at 154. Please be sure to discuss this with your doctor. Additional outpatient diagnostic testing and treatment may be necessary should this remain elevated. Return to the emergency department immediately for any worsening or new concerning symptoms. Stand Alone Forms: Portal Information Referrals: [facility] [Provider Group] [facility] [Outside] Melida Brown [Primary Care Provider, Medicine] Discharge Data Discharge Date/Time-TO BE ENTERED AT DEPARTURE: 09/21/25 15:45 HPI General Mode of arrival: ambulatory. Date/Time Provider Initiated Documentation: 09/21/25 13:10. Limitations to Documentation: no limitations. Information obtained by: patient. HPI Narrative: HISTORY OF PRESENT ILLNESS 75-year-old female with chief complaint of knee pain. Persistent knee pain, described as tendinitis, managed with straps. Pain and instability post-lunch today. Symptoms attributed to back issues by a physician four years ago. Intermittent knee discomfort, fluctuating with activity. Physical therapy initially helped. 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 No recent back pain but ongoing knee pain. Performs [id number]-dh-[id number] exercises and IT band stretches daily. Last leg workout three days ago. Daughter, a physical sciences professor, taught pelvic rotation correction. Rarely uses back brace, requests cane or crutches. Knee swelling noted last Thursday, managed with compression socks. No recent trauma. Patient also notes blurred vision right eye that started last night. Patient does wear contact lenses. Patient states vision was blurred even with contacts out and glasses on last night. No pain in the eye and no headache. Patient does have upcoming appointment with Dr. Perez next Thursday for cataract surgery discussion. Trabeculoplasty in 12/2023 for left eye. Decline in vision with contacts over past months, especially with fine details. Left eye feels fluid-filled by end of day, causing contact lens blurriness. Toric lens in right eye. Related Data Home Medications Medication Instructions Recorded Confirmed ascorbate calcium (vitamin C) 500 1 gm PO DAILY 05/17/20 09/27/25 mg tablet Wendy/cinnamon 0.5 tsp PO DAILY 10/07/22 09/27/25 acetaminophen 500 mg tablet 500 mg PO Q6H PRN 06/16/24 09/27/25 (Tylenol Extra Strength) magnesium glycinate 360 mg PO DAILY 04/29/25 09/27/25 Allergies Allergy/AdvReac Type Severity Reaction Status Date / Time lisinopril Allergy Intermediate Other (See Verified 09/27/25 10:42 Comment) amlodipine Allergy Other (See Verified 09/27/25 10:42 Comment) sulfamethoxazole (From Allergy Other (See Verified 09/27/25 10:42 Bactrim) Comment) trimethoprim (From Bactrim) Allergy Other (See Verified 09/27/25 10:42 Comment) polyethylene glycol AdvReac Intermediate localized Verified 09/27/25 10:42 swelling. numbness/tingling hydrochlorothiazide AdvReac Other (See Verified 09/27/25 10:42 Comment) General Stated Complaint: Orthopedic ARLENE: 4 Review of Systems All systems reviewed & are unremarkable except as noted in HPI and below Constitutional Constitutional: Denies fever(s) Eyes Eyes: Reports as per HPI, Reports blurry vision, Denies diplopia, Denies eye discharge, Denies floaters, Denies itchy eyes, Reports requires corrective lenses and Denies seeing flashes Allergic/Immunologic Allergic/Immunologic: Denies itchy eyes Exam Const General: cooperative and no acute distress HENIN Head: normocephalic and atraumatic Mouth: moist mucous membranes Eyes Alignment and Position: alignment normal Periorbital: periorbital findings normal Eyelids: eyelids normal Conjunctivae: normal conjunctivae Sclera: normal sclerae Cornea: corneas abnormal on the right (Small central area that is more reflective) fluorescein used (Uptake around 6:00) and fluorescein used Pupils: PERRL EOM: EOM intact bilaterally Neck Neck: trachea midline and supple Resp Auscultation: clear to auscultation bilaterally, no rales, no rhonchi and no wheezes Cardio Rate: regular rate and not tachycardic Rhythm: regular rhythm GI Palpation: soft, not firm, no guarding, no masses, not rigid and nontender Skin General skin exam: no rashes or lesions noted Neuro General: patient alert, patient awake and tone normal Extrem General: no edema Psych Appearance: grossly normal Mental Status: mental status grossly normal Affect: other (Flat) Course Vital Signs Vital signs: Vital Signs Temperature 36.5 C 09/21/25 13:01 Pulse 95 H 09/21/25 13:01 Respiratory Rate 16 09/21/25 13:01 Blood Pressure 168/91 H 09/21/25 13:01 Pulse Oximetry 98 09/21/25 13:01 Temperature 36.5 C 09/21/25 13:01 Pulse 95 H 09/21/25 13:01 Respiratory Rate 16 09/21/25 13:01 Blood Pressure 168/91 H 09/21/25 13:01 Pulse Oximetry 98 09/21/25 13:01 Pain Level 6 09/21/25 13:01 Medical Decision Making ASSESSMENT AND PLAN Initial Assessment: 75-year-old female contact lens wearer, here with new onset painless blurred vision in right eye since last night. Patient also with with right knee pain, intermittently giving out, chronic, worse today. Differential Diagnosis: - Nerve impingement/radiculopathy - Intrinsic knee issue - Consider keratitis versus less likely retinal artery occlusion, retinal vein occlusion, ischemic optic neuropathy, acute maculopathy, or retinal detachment ED Course: - Physical exam performed. - Limited funduscopic exam performed. Exam not consistent with retinal detachment, CRVO or CRAO. Slit-lamp exam performed, there is fluorescein uptake at 6:00, her cornea. Suspect keratitis. - Patient has full strength and sensation in her lower extremities. Exam is not consistent with acute CVA. She does have some discomfort in her right hip and knee with ambulation. Suspect combination of arthritis and likely radiculopathy. Plan to treat with crutches. - Stable for discharge Clinical Impression: - Knee pain suspect arthritis and radiculopathy - Blurred vision in right eye suspect keratitis Follow-Up: - orthopedics, patient has been seen by Dr. Davenport in the past 2019 and diagnosed with L4 nerve root compression as well as iliotibial band and trochanteric bursitis. I will refer to him again for reassessment. - Ophthalmology -I called [facility] eye clinic and arrange for outpatient follow-up, they have availability today and will be happy to see her. This document was written with the assistance of PILAR Harding. The patient consented to its use. PFSH All Active Problems (Updated 09/27/25 @ 11:27 by DAISY Moya) Right knee meniscal tear (Acute) Arthritis of right knee (Acute) Leg pain, right (Acute) Keratitis (Acute) Right leg weakness (Acute) Flank pain (Acute) Angina pectoris, unstable (Acute) Visual changes (Acute) Dental infection (Acute) Post-menopausal bleeding (Acute) 07/14/24. EMBx. 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 2010 total chol = 242, TG = 63, HDL =62, LDL = 181. 2013 HDL 50 LDL 171 2018 Total 206. LDL 178. HDL 65 Encounter for colorectal cancer screening (Acute) Medical History (Updated 09/27/25 @ 11:27 by DAISY Moya) Elevated fasting glucose 2013 = 106. 2018 = 106 Actinic keratosis Palpitations (~12/2008) palpitations and syncope - Cardiology evaluation negative Surgical History Ligation of fallopian tube (~1975) Cervical Procedure 1993 cryo Family History Mother Rheumatoid arthritis severe Father Alzheimer's disease Sister Hyperlipidemia Grandmother Heart disease mat aunt Heart disease mat first cousin Personal history of malignant neoplasm Breast CA paternal uncle Alzheimer's disease undiagnosed dementia Brother Melanoma Social History Smoking/Tobacco Use Status: Never Smoking risk assessment performed?: Yes Alcohol Intake: never Drug use: Never Substance use type: does not use Current gender identity: female Special kevon needs: No Do you feel safe at home: Yes Do you feel safe in your relationship?: Yes Female Reproductive History Menstrual Menopause type: natural
[2025-09-21 14:24] LABS: Abs Immature Grans 0.02 10^3/uL (0.0-0.06); HCT 40.2 % (36.0-46.0); HGB 13.3 g/dL (11.2-15.7); Immature Grans % 0.3 %; MCH 30.3 pg (27.0-33.0); MCHC 33.1 % (32.0-36.0); MCV 92 fL (80-95); MPV 9.5 fL (8.0-11.0); Platelet Count 292 10^3/uL (130-400); RBC 4.39 10^6/uL (3.93-5.22); RDW 12.1 % (11.7-14.6); RDW-SD 40.9 fL; WBC 7.10 10^3/uL (4.4-10.8)
[2025-09-21 14:45] LABS: Magnesium 2.1 mg/dL (1.6-2.6)
[2025-09-21 14:47] LABS: ALT 26 U/L (10-49); AST 26 U/L (<34); Albumin 4.7 g/dL (3.4-5.0); Alkaline Phosphatase 74 U/L (46-116); Anion Gap 6.8 mmol/L (3-11); BUN 19 mg/dL (9-23); Bilirubin, Total 0.50 mg/dL (0.2-1.2); CO2 30.2 mmol/L (20.0-31.0); Calcium 9.2 mg/dL (8.3-10.6); Chloride 104 mmol/L (98-107); Glucose 154 mg/dL (74-106); Potassium 4.0 mmol/L (3.5-5.1); Sodium 141 mmol/L (136-145); Total Protein 7.3 g/dL (5.7-8.2)
[2025-09-21 15:03] LABS: Troponin I < 3 ng/L (<35)
== END 2025-09-21 15:45 | disposition home or self-care (01) ==
PROVIDERS: Emergency Provider Student in an Organized Health Care Education/Training Program; PCP Nurse Practitioner Family
DX: M25.561 Pain in right knee (principal); R94.31 Abnormal electrocardiogram [ECG] [EKG]; H16.9 Unspecified keratitis; E78.5 Hyperlipidemia, unspecified
CPT/HCPCS: 80053; 93005; 99283; 83735; 84484; 85025; 93010

== ENCOUNTER 2025-09-27 11:56 | Outpatient (CLI) | payer OTHER, SELFPAY ==
--- NOTE | 2025-09-27 10:45 | DI.RAD_ITS ---
Exam(s) XR KNEE RT 3V AP,LAT,WERNER EXAM: XR KNEE RT 3V AP,LAT,WERNER CLINICAL HISTORY: RIGHT KNEE PAIN. TECHNIQUE: 2D digital imaging was performed of the right knee. Three views obtained. Merchant, AP and lateral views were obtained. COMPARISON: There are no priors for comparison. FINDINGS: BONES: No acute fracture is present. No bony destructive lesion is seen. JOINTS: Small osteophytes are seen at the posterior patella. The joint spaces are otherwise well maintained. No joint effusion is seen. SOFT TISSUE: Normal. IMPRESSION: Minimal degenerative changes seen in the right knee. DATA REPOSITORY: RADIATION DOSE DELIVERED:
== END 2025-09-27 11:57 | disposition home or self-care (01) ==
LOC: DIORS 11:56
PROVIDERS: PCP Nurse Practitioner Family; Visit Provider Student in an Organized Health Care Education/Training Program
DX: M17.11 Unilateral primary osteoarthritis, right knee (principal)
CPT/HCPCS: 73562

== ENCOUNTER → 2025-10-10 11:58 | Outpatient (CLI) | payer OTHER, SELFPAY ==
--- NOTE | 2025-10-10 11:45 | DI.MRI_ITS ---
Exam(s) MR LOWER JOINT RT WO EXAM: MR LOWER JOINT RT WO CLINICAL HISTORY: M17.11 Unilateral primary osteoarthritis, RT knee PAIN, Lateral Meniscus. TECHNIQUE: Multiplanar multisequence MRI was performed. COMPARISON: MR MRI R LOWER JOINT WO CONT from 11/23/2017 CR XR KNEE RT 3V AP,LAT,WERNER from 09/27/2025 FINDINGS: BONES: There is no fracture or contusion pattern. JOINTS: A small joint effusion is present. Articular cartilage: Patellofemoral joint: Articular cartilage is unremarkable. Medial femoral tibial joint: Articular cartilage is unremarkable. Lateral femoral tibial joint: Articular irregularity of the cartilage areas of multifocal thinning. LIGAMENTS/TENDONS: Anterior Cruciate: Unremarkable. Posterior Cruciate: Unremarkable. Medial Collateral:Unremarkable. Lateral Collateral ligament complex: Unremarkable. Extensor mechanism: Unremarkable. Medial retinaculum: Unremarkable. Lateral retinaculum: Unremarkable. Popliteus: Unremarkable. MENISCI: The medial meniscus is unremarkable. The lateral meniscus is somewhat peripherally displaced. There is blunting at the apex of the body could be degenerative or represent a tear. The anterior and posterior horns are unremarkable. MUSCLES: Unremarkable. SOFT TISSUES: Unremarkable. IMPRESSION: Blunting and abnormal signal at the body of the lateral meniscus suspicious for a tear. Small joint effusion. Mild cartilage thinning and irregularity at the lateral femoral tibial joint. DATA REPOSITORY:
== END ==
LOC: DI 11:59
PROVIDERS: PCP Nurse Practitioner Family; Visit Provider Student in an Organized Health Care Education/Training Program
DX: S83.289A Other tear of lateral meniscus, current injury, unspecified knee, initial encounter (principal); M17.11 Unilateral primary osteoarthritis, right knee; X58.XXXA Exposure to other specified factors, initial encounter
CPT/HCPCS: 73721